=== PATIENT | female | born 1945 | race Caucasian/White ===

== ENCOUNTER 2019-02-20 05:11 | Inpatient (IN) | payer MEDICARE, OTHER, SELFPAY ==
[2019-02-20] VITALS (20 sets, daily range): BP systolic 100–113; BP diastolic 48–71; PULSE 65–97; RESP 20–24; TEMP 35.9–37.2; O2SAT 89–94
--- NOTE | ~2019-02-20 | XR_ITS ---
EXAMINATION: XR chest 1V portable EXAM DATE: 02/20/2019 05:51 INDICATION: History of COPD, CHF. TECHNIQUE: Portable AP frontal chest x-ray was obtained. Comparison is made to prior examination from 01/30/2019. FINDINGS: Rather extensive diffuse abnormal reticulation, most likely pulmonary edema assuming patien t does not have pneumonia clinically. There is cardiomegaly and there are small pleural effusions. Pr obable cardiac valve replacement. There is no pneumothorax suspected. There are bony degenerative sandy nges. There is aortic arterial sclerosis. IMPRESSION: 1. Extensive indistinct reticulation probably edema. Pneumonia not excludable. 2. Small pleural effusions, cardiomegaly. Reviewed, dictated and finalized at location A. ET DANCER IMPRESSION: 1. Extensive indistinct reticulation probably edema. Pneumonia not excludable . 2. Small pleural effusions, cardiomegaly.
--- NOTE | 2019-02-20 05:24 | ED.SOB ---
HPI - SOB/Dyspnea General Source: patient Mode of arrival: EMS Limitations: no limitations History of Present Illness HPI Narrative: 73-year-old woman brought in today by EMS for shortness of breath. Patient states that her shortness of breath started about 3:00 a.m. this morning. She denies any chest pain, nausea, sweating. She has recently been treated for bronchitis with antibiotics. She uses BiPAP at night and has 2 L by nasal cannula during the daytime. MD elicited complaint: shortness of breath and cough Pertinent past history: COPD, congestive heart failure and diabetes Context: recent illness Timing: constant Severity: moderate Exacerbating factors: lying flat Relieving factors: nothing Known history of: COPD, congestive heart failure and diabetes Associated symptoms: cough Treatment prior to arrival: oxygen and bronchodilator Related Data Home oxygen amount: 2 liters Home Medications Medication Instructions Recorded Confirmed amlodipine [Norvasc] See Rx Instructions .ROUTE .COMPLEX 02/20/19 apixaban [Eliquis] See Rx Instructions .ROUTE .COMPLEX 02/20/19 02/20/19 aspirin [Aspirin Childrens] See Rx Instructions .ROUTE .COMPLEX 02/20/19 02/20/19 atenolol [Tenormin] See Rx Instructions .ROUTE .COMPLEX 02/20/19 02/20/19 atorvastatin [Lipitor] See Rx Instructions .ROUTE .COMPLEX 02/20/19 02/20/19 brimonidine-timolol [Combigan] See Rx Instructions .ROUTE .COMPLEX 02/20/19 02/20/19 docusate sodium [Colace] 100 mg PO BID 02/20/19 02/20/19 ferrous sulfate 325 mg PO DAILY 02/20/19 02/20/19 furosemide [Lasix] See Rx Instructions .ROUTE .COMPLEX 02/20/19 02/20/19 gabapentin [Neurontin] See Rx Instructions .ROUTE .COMPLEX 02/20/19 02/20/19 ipratropium-albuterol 3 ml INHALATION Q6H PRN 02/20/19 02/20/19 levothyroxine [Synthroid] See Rx Instructions .ROUTE .COMPLEX 02/20/19 02/20/19 metformin 1,000 mg PO BID 02/20/19 02/20/19 Allergies Allergy/AdvReac Type Severity Reaction Status Date / Time morphine Allergy Intermediate Swelling Verified 02/20/19 10:05 sea food Allergy Intermediate Hives Uncoded 02/20/19 10:05 Review of Systems Constitutional: Constitutional: Denies chills, Denies fever(s) and Reports weakness Eyes: Eyes: Denies change in vision and Denies photophobia ENT: Denies dysphagia, Denies nasal congestion and Denies sore throat Cardiovascular: Cardiovascular: Denies chest pain, Denies rapid heart rate and Denies radiating jaw, neck or arm pain Respiratory: Respiratory: Reports as per HPI, Reports chest congestion, Reports cough, Reports dyspnea and Reports wheezing Gastrointestinal: Gastrointestinal: Denies abdominal pain, Denies diarrhea, Denies nausea and Denies vomiting Genitourinary: Genitourinary: Denies hematuria, Denies frequent urination and Denies dysuria Musculoskeletal: Musculoskeletal: Denies back pain, Denies myalgias and Denies joint swelling Integumentary/Breasts: Skin/Breast: Denies pruritus, Denies erythema and Denies rash Neurologic: Denies vertigo, Denies dizziness, Denies syncope, Denies headache(s) and Denies focal weakness Psychiatric: Psychiatric: Denies anxiety and Denies depression Endocrine: Endocrine: Denies polydipsia and Denies polyuria Hematologic/Lymphatic: Hematologic/Lymphatic: Denies easy bleeding and Reports easy bruising (on Eliquis) Allergic/Immunologic: Allergic/Immunologic: Denies lip swelling and Denies wheezing PMFSH Past Medical History Medical History Aortic valve stenosis (Acute) Atrial fibrillation (Acute) Cardiac arrest (Acute) Chronic back pain (Acute) Congestive heart failure (Acute) COPD (chronic obstructive pulmonary disease) (Acute) CVA (cerebral vascular accident) (Acute) Depression (Acute) Hypertension (Acute) Myocardial infarction (Acute) Obesity (Acute) Obstructive sleep apnea (Acute) Pulmonary hypertension (Acute) Type 2 diabetes mellitus (Acute) Surgical History Surgical History (Revie
--- NOTE | 2019-02-20 05:31 | ECG_ITS ---
Measurements Intervals Johnston Rate: 95 P: CO: 0 QRS: -53 QRSD: 101 T: 90 QT: 332 QTc: 417 Interpretive Statements ATRIAL FIBRILLATION LEFT AXIS DEVIATION LOW QRS VOLTAGE- DIFFUSE LEADS POOR R WAVE PROGRESSION, ANTERIOR LEADS BASELINE ARTIFACT- I, II, III, AVR, AVL, V1-V6 ATYPICAL ECG Electronically Signed On 02-20-2019 8:00:52 DIGITAL ADVISOR by Luis Alberto López D.O.
[2019-02-20] MEDS: IPRATROPIUM 0.5 MG/ALBUTEROL SULFATE 2.5 MG AMPUL.NEB 3 ML INHALATION ×4 (05:58→23:34)
[2019-02-20] MEDS: SODIUM CHLORIDE 0.9% 3 ML NEB FOR INHALATION (05:59)
[2019-02-20] MEDS: FUROSEMIDE INJ 40 MG/4 ML VIAL 60 MG IV PUSH (05:59)
[2019-02-20 06:16] LABS: Basophils Absolute Auto 0.03 K/mm3 (0.00-0.10); Basophils Percent Auto 0.2 % (0.0-1.0); Eosinophils Absolute Auto 0.19 K/mm3 (0.02-0.50); Eosinophils Percent Auto 1.5 % (1.0-6.0); Hematocrit 30.3 % (35.0-42.0); Hemoglobin 9.1 g/dL (11.7-13.8); Immature Granulocyte Absolute 0.08 K/mm3 (0.00-0.00); Immature Granulocyte Percent A 0.6 % (0.0-0.0); Lymphocytes Absolute Auto 0.55 K/mm3 (1.10-4.50); Lymphocytes Percent Auto 4.4 % (18.0-42.0); Mean Corpuscular Hemoglobin 24.3 pg (27.0-31.0); Mean Corpuscular Volume 80.8 fL (78.0-102.0); Monocytes Absolute Auto 0.47 K/mm3 (0.10-0.90); Monocytes Percent Auto 3.8 % (2.0-11.0); Neutrophils Absolute Auto 11.1 K/mm3 (1.7-7.2); Neutrophils Percent Auto 89.5 % (50.0-70.0); Platelet Count Result 190 K/mm3 (150-420); Red Blood Count 3.75 M/mm3 (4.20-5.40); White Blood Count 12.4 K/mm3 (4.8-10.8)
[2019-02-20 06:24] LABS: Add Urine Microscopic? YES; Appearance Urine Cloudy (Clear); Base Excess ABG 7.5 mmol/L (0-2); Bilirubin Urine Negative (Negative); Blood Urine 3+ (Negative); Color Urine Yellow (Yellow); Glucose Urine UA Negative (Negative); HCO3 ABG 32.9 mmol/L (23-29); Ketones Urine Negative (Negative); Leukocyte Esterase Ur 3+ LEU/UL (Negative); Nitrate Urine Positive (Negative); Oxygen Content ABG 13.4 %vol (16.0-22.0); Oxygen Saturation ABG 91.5 % (95-97); Oxyhemoglobin 90.4 % (94-100); PCO2 ABG 50.8 mmHg (35-45); PO2 ABG 61.5 mmHg (75-85); Protein Urine 2+ (Negative); Total Hemoglobin 10.5 g/dL; pH ABG 7.43 (7.35-7.45); pH Urine 8.5 (5.0-8.0)
[2019-02-20 06:25] LABS: Device NASAL CANNULA; Modified Allen's Test Unable to perform; Site Drawn LEFT RADIAL; Squamous Epithelial Cell Urine Rare /hpf (Few); WBC Urine 21-30 /hpf (0-3)
[2019-02-20 06:26] LABS: Bacteria Urine 4+ /hpf; Calcium Oxalate Crystals Urine Present /hpf
[2019-02-20 06:36] LABS: BNP 371 pg/mL (0-100); INR 1.1; Prothrombin Time 12.1 Seconds (9.64-11.0)
[2019-02-20 06:38] LABS: Influenza Control Valid (Valid)
[2019-02-20 06:46] LABS: Lactic Acid 1.3 mmol/L (0.4-2.0)
[2019-02-20 06:48] LABS: Alanine Aminotransferase 11 U/L (14-59); Albumin Level 2.8 g/dL (3.4-5.0); Alkaline Phosphatase 115 U/L (46-116); Anion Gap 8.1 mmol/L (7-16); Aspartate Amino Transferase 12 U/L (15-37); Bilirubin,Total 0.6 mg/dL (0.00-1.00); Blood Urea Nitrogen 13 mg/dL (7-18); Calcium 8.8 mg/dL (8.5-10.1); Carbon Dioxide 36 mmol/L (21-32); Chloride 103 mmol/L (98-108); Estimated CRCL calculation 72 ml/min; Estimated Glomerular Filt Rate > 60; Glucose 149 mg/dL (70-99); Osmolality Calculated 301 mOsm/kg (285-295); Potassium 3.1 mmol/L (3.5-5.1); Sodium 144 mmol/L (136-145); Total Protein 6.6 g/dL (6.4-8.2)
[2019-02-20 06:49] LABS: Magnesium 1.8 mg/dL (1.8-2.4); Troponin I < 0.02 ng/mL (0.00-0.056)
[2019-02-20] MEDS: methylPREDNISolone SOD SUCC 125 MG VIAL 80 MG IV PUSH (07:15)
[2019-02-20 08:23] LABS: Glucose Point of Care 157 (65-105)
[2019-02-20 09:25] LABS: Troponin I 0.02 ng/mL (0.00-0.056)
[2019-02-20] MEDS: KCL 20 MEQ/SW 100 ML 100 ML 50 MEQ IVPB (09:29)
[2019-02-20] MEDS: APIXABAN 2.5 MG TABLET 5 MG BY MOUTH ×2 (09:29→16:35)
[2019-02-20] MEDS: metFORMIN HCL 500 MG TABLET PO ×2 (09:29→16:34)
[2019-02-20] MEDS: LEVOTHYROXINE SODIUM 100 MCG TABLET 200 MCG BY MOUTH (09:30)
[2019-02-20] MEDS: AMLODIPINE BESYLATE 5 MG TABLET 10 MG BY MOUTH (09:30)
[2019-02-20] MEDS: ASPIRIN 81 MG CHEWABLE TABLET BY MOUTH (09:30)
[2019-02-20] MEDS: ESCITALOPRAM OXALATE 10 MG TABLET PO (09:30)
[2019-02-20] MEDS: GABAPENTIN 300 MG CAPSULE BY MOUTH ×3 (09:30→16:35)
[2019-02-20] MEDS: DOCUSATE SODIUM 100 MG CAPSULE PO ×2 (09:31→16:35)
[2019-02-20] MEDS: FERROUS SULFATE 324 MG TABLET PO (09:31)
[2019-02-20] MEDS: ATENOLOL 25 MG TABLET PO (09:32)
[2019-02-20] MEDS: ALBUTEROL SULFATE NEB 2.5 MG/3 ML INH INHALATION ×2 (09:34→14:08)
[2019-02-20 10:07] LABS: Phosphorus 4.8 mg/dL (2.6-4.7)
--- NOTE | 2019-02-20 12:02 | PM.IMHP ---
H&P: HPI History of Present Illness Chief complaint: respitory distress <Noris Goldberg NP - Last Filed: 02/20/19 16:21> Narrative: Angela Ewing is a 73 year old female admitted thru the ED earlier this morning for shortness of breath that started around 3 am this morning. She does have a productive and congested cough. She was treated with antibiotics recently for bronchitis. Her influenza swab was negative, her ABG showed CO2 retention with elevated bicarb. She does wear 2 L O2 NC during the day at the [facility], as well as her BiPap for sleeping/napping due to [place]. She has a history of COPD, CHF, and DM. Her Iron panel showed low Iron levels, ordered daily 200mg IV Venofer for 3 days. THIS MORNING, she is resting comfortably with her BiPap mask on. She does have a a productive and congested cough this morning. No fevers, no SOB at this time, and no chest pain. She stated that she is feeling better but continues to require 4L O2 and Q3-6 hour nebulizer treatments to relieve her SOB. She is eating her most of her meals and needs asistance x 2 for repositioning to sit upright. Ordered Pt/OT evaluation. Plan: Ordered Oxygen to bleed into the BiPap machine so she is receiving O2 continuously. Daily Lasix dosing to improve pulmonary congestion and edema. Started on IV Rocephin for UTI and IV Levaquin for Pneumonia/UTI. Her blood and urine cultures remain pending. Ordered Incentive Spirometer, Mucinex scheduled, Tesselon PRN, and DuoNeb treatments. Awaiting her urine and blood cultures results for sensitivities. <Noris Goldberg, RAW CHEESE WORKER - Last Filed: 02/20/19 16:21> Review of Systems Review of Systems: All systems reviewed & are unremarkable except as noted in HPI and below <Noris Goldberg NP - Last Filed: 02/20/19 16:21> Constitutional: Constitutional: Reports as per HPI, Denies chills, Denies fever(s), Denies headache(s) and Reports weakness <Noris Goldberg NP - Last Filed: 02/20/19 16:21> Eyes: Eyes: Denies change in vision and Denies photophobia <Noris Goldberg NP - Last Filed: 02/20/19 16:21> ENT: Denies dysphagia, Denies vertigo, Denies dizziness, Denies headache(s), Denies lip swelling, Denies nasal congestion and Denies sore throat <Noris Goldberg RAW CHEESE WORKER - Last Filed: 02/20/19 16:21> Cardiovascular: Cardiovascular: Denies chest pain, Denies syncope, Denies rapid heart rate, Denies radiating jaw, neck or arm pain and Reports dyspnea <Noris Goldberg RAW CHEESE WORKER - Last Filed: 02/20/19 16:21> Respiratory: Respiratory: Reports as per HPI, Reports chest congestion, Reports cough, Reports dyspnea and Denies wheezing <Noris Goldberg RAW CHEESE WORKER - Last Filed: 02/20/19 16:21> Gastrointestinal: Gastrointestinal: Denies abdominal pain, Denies dysphagia, Denies diarrhea, Denies nausea and Denies vomiting <Noris Goldberg RAW CHEESE WORKER - Last Filed: 02/20/19 16:21> Genitourinary: Genitourinary: Denies hematuria, Denies frequent urination and Denies dysuria <Noris Goldberg RAW CHEESE WORKER - Last Filed: 02/20/19 16:21> Musculoskeletal: Musculoskeletal: Denies back pain, Denies myalgias and Denies joint swelling <Noris Goldberg RAW CHEESE WORKER - Last Filed: 02/20/19 16:21> Integumentary/Breasts: Skin/Breast: Denies pruritus, Denies erythema and Denies rash <Noris Goldberg RAW CHEESE WORKER - Last Filed: 02/20/19 16:21> Neurologic: Denies vertigo, Denies dizziness, Denies syncope, Denies headache(s), Denies focal weakness and Reports weakness <Noris Goldberg RAW CHEESE WORKER - Last Filed: 02/20/19 16:21> Psychiatric: Psychiatric: Denies anxiety and Denies depression <Norsi Goldberg RAW CHEESE WORKER - Last Filed: 02/20/19 16:21> Endocrine: Endocrine: Denies polydipsia and Denies polyuria <Noris Goldberg RAW CHEESE WORKER - Last Filed: 02/20/19 16:21> Hematologic/Lymphatic: Hematologic/Lymphatic: Denies easy bleeding and Reports easy bruising (on Eliquis) <Noris Goldberg RAW CHEESE WORKER - Last Filed: 02/20/19 16:21> Allergic/Immunologic: Allergic/Immunologic: Denies lip swelling and Denies wheezing <Noris Goldberg, RAW CHEESE WORKER -
[2019-02-20 12:06] LABS: Glucose Point of Care 218 (65-105)
--- NOTE | 2019-02-20 14:55 | P.PNCROSS_ITS ---
Event Note Event Note: Pt. using bipap, feeling comfortable. Bibasilar rales on exam. I discussed with and reviewed documents of MANAGER ACQUISITION and agree with medical decision and plan.
--- NOTE | 2019-02-20 14:55 | PM.EVENT ---
Event Note Event Note: Pt. using bipap, feeling comfortable. Bibasilar rales on exam. I discussed with and reviewed documents of ELECTRONIC PREPRESS OPERATOR and agree with medical decision and plan.
[2019-02-20 16:39] LABS: Glucose Point of Care 204 (65-105)
[2019-02-20] MEDS: FUROSEMIDE INJ 40 MG/4 ML VIAL IV PUSH (17:49)
--- NOTE | 2019-02-20 18:09 | PC.NURSE ---
Galeano bag changed due to leakage
[2019-02-20] MEDS: ACETAMINOPHEN 325 MG TABLET 650 MG PO (19:49)
[2019-02-20] MEDS: ATORVASTATIN 10 MG TABLET 40 MG BY MOUTH (20:34)
[2019-02-20 20:47] LABS: Glucose Point of Care 160 (65-105)
--- NOTE | 2019-02-20 21:30 | PC.NURSE ---
pt sitting up in bed watching tv, talking on the phone, denies any needs at this time.
--- NOTE | 2019-02-20 23:45 | PC.NURSE ---
pt assisted with home bipap machine application, denies any other needs at this time
[2019-02-21] VITALS (15 sets, daily range): BP systolic 110–131; BP diastolic 48–70; PULSE 65–86; RESP 18–20; TEMP 36.1–36.6; O2SAT 90–95
--- NOTE | 2019-02-21 00:41 | PC.NURSE ---
pt sleeping, no distress noted, respirations even and regular
[2019-02-21 05:21] LABS: Hematocrit 26.5 % (35.0-42.0); Hemoglobin 8.1 g/dL (11.7-13.8); Mean Corpuscular HGB Conc 30.6 g/dL (32.0-36.0); Mean Corpuscular Hemoglobin 24.6 pg (27.0-31.0); Mean Corpuscular Volume 80.5 fL (78.0-102.0); Mean Platelet Volume 9.8 fl (9.2-11.8); Platelet Count Result 164 K/mm3 (150-420); Red Blood Count 3.29 M/mm3 (4.20-5.40); Red Cell Distribution Width 15.8 % (11.6-14.4)
[2019-02-21 05:38] LABS: Anion Gap 9.1 mmol/L (7-16); Blood Urea Nitrogen 16 mg/dL (7-18); Calcium 8.3 mg/dL (8.5-10.1); Carbon Dioxide 35 mmol/L (21-32); Chloride 103 mmol/L (98-108); Estimated CRCL calculation 85 ml/min; Estimated Glomerular Filt Rate > 60; Glucose 121 mg/dL (70-99); Osmolality Calculated 300 mOsm/kg (285-295); Potassium 3.1 mmol/L (3.5-5.1); Sodium 144 mmol/L (136-145)
[2019-02-21] MEDS: IPRATROPIUM 0.5 MG/ALBUTEROL SULFATE 2.5 MG AMPUL.NEB 3 ML INHALATION ×4 (05:39→23:33)
--- NOTE | 2019-02-21 05:39 | PC.NURSE ---
Respiratory at bedside
[2019-02-21 05:41] LABS: BNP 577 pg/mL (0-100)
--- NOTE | 2019-02-21 06:29 | PC.NURSE ---
pt sitting up in bed watching tv, denies any needs at this time.
[2019-02-21 07:22] LABS: Glucose Point of Care 117 (65-105)
[2019-02-21] MEDS: FUROSEMIDE INJ 40 MG/4 ML VIAL IV PUSH ×2 (08:41→17:54)
[2019-02-21] MEDS: DOCUSATE SODIUM 100 MG CAPSULE PO ×2 (08:42→17:53)
[2019-02-21] MEDS: AMLODIPINE BESYLATE 5 MG TABLET 10 MG BY MOUTH (08:42)
[2019-02-21] MEDS: ATENOLOL 25 MG TABLET PO (08:42)
[2019-02-21] MEDS: ESCITALOPRAM OXALATE 10 MG TABLET PO (08:42)
[2019-02-21] MEDS: GABAPENTIN 300 MG CAPSULE BY MOUTH ×3 (08:43→17:53)
[2019-02-21] MEDS: LEVOTHYROXINE SODIUM 100 MCG TABLET 200 MCG BY MOUTH (08:43)
[2019-02-21] MEDS: ASPIRIN 81 MG CHEWABLE TABLET BY MOUTH (08:44)
[2019-02-21] MEDS: APIXABAN 2.5 MG TABLET 5 MG BY MOUTH ×2 (08:44→17:53)
[2019-02-21] MEDS: IRON SUCROSE COMPLEX 200 MG in SODIUM CHLORIDE 0.9% IV 50 ML 120 MG IVPB (08:45)
[2019-02-21] MEDS: metFORMIN HCL 500 MG TABLET PO ×2 (08:46→17:53)
--- NOTE | 2019-02-21 10:30 | PC.NURSE ---
Pt. resting in bed on left side. Bipap applied per RT. Pt. denies any needs. Call light at side.
[2019-02-21] MEDS: POTASSIUM CHLORIDE 20 MEQ TABLET 40 MEQ PO (10:33)
[2019-02-21] MEDS: SACCHAROMYCES BOULARDII 250 MG CAPSULE PO ×3 (10:33→17:54)
--- NOTE | 2019-02-21 10:52 | PM.IMPN ---
Progress Note: A&P Assessment and Plan (1) senior care-acquired pneumonia: Code(s): J18.9 - Pneumonia, unspecified organism Status: Acute Assessment and Plan: Assessment with crackles, coarse sounds, wheezing to auscultation. Productive and congested cough. Cough increasing in productiveness, now getting out moderate amounts of green and yellow thick sputum with her coughs today. May be related to her last few weeks of respiratory distress, intubation, hospital transfers, pulmonary HTN, aortic valve replacement or her [facility] stay. CXR showed: Rather extensive diffuse abnormal reticulation, pulmonary edema and/or pneumonia. There is cardiomegaly and there are small pleural effusions. Probable cardiac valve replacement. There is no pneumothorax suspected. There are bony degenerative changes. There is aortic arterial sclerosis. Influenza swab was negative. No fevers noted. ABG showed CO2 retention with elevated bicarb; using BiPap PRN and improving. requires 4L O2 continously (more than home 2L O2 need) requiring Q3-6 hour nebulizer treatments to relieve her SOB. IMPROVING with Incentive Spirometer, Mucinex scheduled, Tesselon PRN, and DuoNeb treatments. Started on IV Rocephin for UTI and IV Levaquin for Pneumonia/UTI. Her blood,urine, and sputum cultures remain pending. Awaiting her urine and blood cultures results for sensitivities. (2) Obstructive sleep apnea: Code(s): G47.33 - Obstructive sleep apnea (adult) (pediatric) Status: Acute Assessment and Plan: Wears her BiPap at night and for napping, as well as for shortness of breath. ABG showed CO2 retention with elevated bicarb; using BiPap PRN and improving. requires 4L O2 continously (more than home 2L O2 need) Ordered Oxygen to bleed into the BiPap machine so she is receiving O2 continuously. (3) Atrial fibrillation: Code(s): I48.91 - Unspecified atrial fibrillation Status: Acute Assessment and Plan: Continuous Telemetry monitoring. Chronic and Stable. or may be related to her aortic valve replacement. on daily Eliquis. HR controlled, Rate 70-80s. EKG completed and reviewed. (4) UTI (urinary tract infection): Qualifiers: Hematuria presence: without hematuria Urinary tract infection type: acute cystitis Qualified Code(s): N30.00 - Acute cystitis without hematuria Code(s): N39.0 - Urinary tract infection, site not specified Status: Acute Assessment and Plan: Urine analysis with elevated WBC and + nitrates. Galeano catheter inserted in ED upon this hospital admission. Patent catheter. Urine clear and yellow in bag. Strict I/Os. Continue on IV Rocephin for UTI (IV Levaquin for Pneumonia/UTI). Her blood and urine cultures remain pending. Awaiting her urine and blood cultures results for sensitivities. (5) Obesity: Code(s): E66.9 - Obesity, unspecified Status: Acute Assessment and Plan: needs assistance x2 with turning and repositioning. PT/OT evaluations ordered. encouraged patient to increase her activity herself while in bed. diabetic/heart healthy diet To improve her Respiratory tolerance of Activity - needs to improve and increase muscle tone/function and Stamina. (6) Congestive heart failure: Qualifiers: Heart failure chronicity: acute on chronic Heart failure type: unspecified Qualified Code(s): I50.9 - Heart failure, unspecified Code(s): I50.9 - Heart failure, unspecified Status: Acute Assessment and Plan: productive and congested cough; CHF exacerbation vs. COPD exacerbation vs. Pneumonia (or all 3) IMPROVING with Diuresis. BiPap mask PRN Requiring more O2 to relieve her SOB. Ordered Oxygen to bleed into the BiPap machine so she is receiving O2 continuously - need to be sure this practice continues at the [facility]. Daily 40mg IV Lasix BID dosing to improve pulmonary congestion and edema. Creatinine levels/Renal fun
[2019-02-21] MEDS: methylPREDNISolone SOD SUCC 40 MG VIAL IV PUSH ×2 (11:06→17:52)
[2019-02-21 11:12] LABS: Glucose Point of Care 119 (65-105)
--- NOTE | 2019-02-21 11:45 | PC.NURSE ---
RT in room to give nebulizer treatment. Pt. resting in bed on left side. Denies any needs at present. Call light and belongings at side.
--- NOTE | 2019-02-21 16:35 | PC.NURSE ---
Blood sugar check 154. Pt. to not receive any insulin. Pt. daughter in room to visit.
[2019-02-21] MEDS: ATORVASTATIN 10 MG TABLET 40 MG BY MOUTH (20:35)
--- NOTE | 2019-02-21 21:39 | PC.NURSE ---
pt resting in bed watching tv, denies any needs at this time, call light and belongings within reach
--- NOTE | 2019-02-21 22:30 | PC.NURSE ---
pt resting in bed watching tv, pt denies any needs at this time
[2019-02-21] MEDS: ACETAMINOPHEN 325 MG TABLET 650 MG PO (23:45)
[2019-02-22] VITALS (11 sets, daily range): BP systolic 122–143; BP diastolic 63–75; PULSE 66–84; RESP 16–20; TEMP 36.1–36.2; O2SAT 93–95
--- NOTE | 2019-02-22 00:46 | PC.NURSE ---
pt sleeping, respirations even and regular, no evidence of distress noted, call light and belongings within reach
[2019-02-22 01:51] LABS: Glucose Point of Care 179 (65-105)
[2019-02-22 05:18] LABS: Hematocrit 29.9 % (35.0-42.0); Hemoglobin 8.9 g/dL (11.7-13.8); Mean Corpuscular HGB Conc 29.8 g/dL (32.0-36.0); Mean Corpuscular Hemoglobin 24.2 pg (27.0-31.0); Mean Corpuscular Volume 81.3 fL (78.0-102.0); Mean Platelet Volume 9.9 fl (9.2-11.8); Platelet Count Result 197 K/mm3 (150-420); Red Blood Count 3.68 M/mm3 (4.20-5.40); Red Cell Distribution Width 15.8 % (11.6-14.4)
[2019-02-22] MEDS: FUROSEMIDE INJ 40 MG/4 ML VIAL IV PUSH ×2 (05:26→18:13)
[2019-02-22] MEDS: IPRATROPIUM 0.5 MG/ALBUTEROL SULFATE 2.5 MG AMPUL.NEB 3 ML INHALATION ×4 (05:32→23:58)
[2019-02-22 05:33] LABS: BNP 751 pg/mL (0-100)
[2019-02-22 05:36] LABS: Anion Gap 9.9 mmol/L (7-16); Blood Urea Nitrogen 18 mg/dL (7-18); Calcium 8.5 mg/dL (8.5-10.1); Carbon Dioxide 34 mmol/L (21-32); Chloride 103 mmol/L (98-108); Estimated CRCL calculation 74 ml/min; Estimated Glomerular Filt Rate > 60; Glucose 149 mg/dL (70-99); Osmolality Calculated 300 mOsm/kg (285-295); Potassium 3.9 mmol/L (3.5-5.1); Sodium 143 mmol/L (136-145)
--- NOTE | 2019-02-22 06:20 | PC.NURSE ---
pt requested bi-pap to be placed on, she is sleepy and would like to rest
[2019-02-22 07:41] LABS: Glucose Point of Care 124 (65-105)
[2019-02-22] MEDS: ESCITALOPRAM OXALATE 10 MG TABLET PO (08:20)
[2019-02-22] MEDS: POTASSIUM CHLORIDE 20 MEQ TABLET 40 MEQ PO (08:20)
[2019-02-22] MEDS: metFORMIN HCL 500 MG TABLET PO ×2 (08:23→18:14)
[2019-02-22] MEDS: GABAPENTIN 300 MG CAPSULE BY MOUTH ×3 (08:23→18:15)
[2019-02-22] MEDS: LEVOTHYROXINE SODIUM 100 MCG TABLET 200 MCG BY MOUTH (08:23)
[2019-02-22] MEDS: FERROUS SULFATE 324 MG TABLET PO (08:24)
[2019-02-22] MEDS: SACCHAROMYCES BOULARDII 250 MG CAPSULE PO ×2 (08:25→18:22)
[2019-02-22] MEDS: DOCUSATE SODIUM 100 MG CAPSULE PO ×2 (08:25→18:15)
[2019-02-22] MEDS: ATENOLOL 25 MG TABLET PO (08:25)
[2019-02-22] MEDS: AMLODIPINE BESYLATE 5 MG TABLET 10 MG BY MOUTH (08:27)
[2019-02-22] MEDS: APIXABAN 2.5 MG TABLET 5 MG BY MOUTH ×2 (08:28→18:14)
[2019-02-22] MEDS: ASPIRIN 81 MG CHEWABLE TABLET BY MOUTH (08:28)
[2019-02-22] MEDS: methylPREDNISolone SOD SUCC 40 MG VIAL IV PUSH ×2 (08:32→18:13)
--- NOTE | 2019-02-22 09:12 | PC.NURSE ---
P.T. HERE FOR EVALUATION. JAILENE Escobedo IN TO SEE PT.
[2019-02-22] MEDS: IRON SUCROSE COMPLEX 200 MG in SODIUM CHLORIDE 0.9% IV 100 ML 146 MG IVPB (09:33)
--- NOTE | 2019-02-22 09:54 | PM.IMPN ---
Progress Note: A&P Assessment and Plan (1) half-way-acquired pneumonia: Code(s): J18.9 - Pneumonia, unspecified organism Status: Acute Assessment and Plan: Wheezing improved. Cough now rare but remains productive. May be related to her last few weeks of respiratory distress, intubation, hospital transfers, pulmonary HTN, hx.aortic valve replacement or her Assisted stay. CXR showed: Rather extensive diffuse abnormal reticulation, pulmonary edema and/or pneumonia. There is cardiomegaly and there are small pleural effusions. Probable cardiac valve replacement. There is no pneumothorax suspected. There are bony degenerative changes. There is aortic arterial sclerosis. Influenza swab was negative. No fevers noted. ABG showed CO2 retention with elevated bicarb; using BiPap PRN and improving. requires 3-4L O2 continuously (more than usual home 2L O2 need) requiring Q4-6 hour nebulizer treatments to relieve her SOB. IMPROVING with Incentive Spirometer, Mucinex scheduled, Tesselon PRN, and DuoNeb treatments. Started on IV Rocephin for UTI and IV Levaquin for Pneumonia/UTI. blood cultures x2 showed no growth, urine cultures showed Proteus mirabilis (awaiting sensitivities), and her Sputum culture showed gram + bacilli, gram + Cocci (awaiting sensitivites). (2) Obstructive sleep apnea: Code(s): G47.33 - Obstructive sleep apnea (adult) (pediatric) Status: Acute Assessment and Plan: Wears her BiPap at night and for napping, as well as for shortness of breath. ABG showed CO2 retention with elevated bicarb; using BiPap PRN and improving. requires 4L O2 continously (more than home 2L O2 need) Ordered Oxygen to bleed into the BiPap machine so she is receiving O2 continuously. (3) Atrial fibrillation: Code(s): I48.91 - Unspecified atrial fibrillation Status: Acute Assessment and Plan: Continuous Telemetry monitoring. Chronic and Stable. or may be related to her aortic valve replacement. on daily Eliquis. HR controlled, Rate 70-80s. EKG completed and reviewed. (4) UTI (urinary tract infection): Qualifiers: Hematuria presence: without hematuria Urinary tract infection type: acute cystitis Qualified Code(s): N30.00 - Acute cystitis without hematuria Code(s): N39.0 - Urinary tract infection, site not specified Status: Acute Assessment and Plan: Urine analysis with elevated WBC and + nitrates. Galeano catheter inserted in ED upon this hospital admission. Patent catheter. Urine clear and yellow in bag. Strict I/Os. Continue on IV Rocephin for UTI (IV Levaquin for Pneumonia/UTI). Her blood and urine cultures remain pending. Her blood cultures x2 showed no growth, urine cultures showed Proteus mirabilis (awaiting sensitivities), and her Sputum culture showed gram + bacilli, gram + Cocci (awaiting sensitivites). (5) Obesity: Code(s): E66.9 - Obesity, unspecified Status: Acute Assessment and Plan: needs assistance x2 with turning and repositioning. PT/OT evaluations ordered. encouraged patient to increase her activity herself while in bed. diabetic/heart healthy diet To improve her Respiratory tolerance of Activity - needs to improve and increase muscle tone/function and Stamina. (6) Congestive heart failure: Qualifiers: Heart failure chronicity: acute on chronic Heart failure type: unspecified Qualified Code(s): I50.9 - Heart failure, unspecified Code(s): I50.9 - Heart failure, unspecified Status: Acute Assessment and Plan: productive and congested cough; CHF exacerbation vs. COPD exacerbation vs. Pneumonia (or all 3) IMPROVING with Diuresis. BiPap mask PRN Requiring more O2 to relieve her SOB. Ordered Oxygen to bleed into the BiPap machine so she is receiving O2 continuously - need to be sure this practice continues at the Assisted. Daily 40mg IV Lasix BID dosing to improve pulmonary congestion and
[2019-02-22 10:10] LABS: Folic Acid 6.9 ng/mL (8.6->20); Thyroid Stimulating Hormone 0.22 uIU/mL (0.36-3.74); Vitamin B12 250 pg/mL (193-986)
[2019-02-22 11:39] LABS: Glucose Point of Care 114 (65-105)
--- NOTE | 2019-02-22 14:59 | PC.NURSE ---
WATCHING TV. WEARING C-PAP
--- NOTE | 2019-02-22 16:50 | PC.NURSE ---
Physical Therapy done working with pt. Pt. sitting up at side of bed resting. Blood sugar check 124. Pt. denies any needs. Call light and belongings at side.
[2019-02-22 16:51] LABS: Glucose Point of Care 124 (65-105)
[2019-02-22] MEDS: ATORVASTATIN 10 MG TABLET 40 MG BY MOUTH (20:43)
[2019-02-22 21:37] LABS: Glucose Point of Care 163 (65-105)
--- NOTE | 2019-02-22 21:43 | PC.NURSE ---
Patient bedding was wet with urine. Catheter was still inserted but appeared to have been pulled lower. Catheter care given and catheter repositioned. 1100 mls of light yellow clear urine removed from collection bag. Bedding changed.
[2019-02-23] VITALS (8 sets, daily range): BP systolic 125–145; BP diastolic 62–79; PULSE 68–74; RESP 14–20; TEMP 35.8–36.4; O2SAT 96–98
[2019-02-23 05:24] LABS: Hematocrit 30.9 % (35.0-42.0); Hemoglobin 9.2 g/dL (11.7-13.8); Mean Corpuscular HGB Conc 29.8 g/dL (32.0-36.0); Mean Corpuscular Hemoglobin 24.2 pg (27.0-31.0); Mean Corpuscular Volume 81.3 fL (78.0-102.0); Platelet Count Result 216 K/mm3 (150-420); Red Cell Distribution Width 15.9 % (11.6-14.4); White Blood Count 11.5 K/mm3 (4.8-10.8)
[2019-02-23 05:27] LABS: Anion Gap 11.7 mmol/L (7-16); Blood Urea Nitrogen 20 mg/dL (7-18); Calcium 8.8 mg/dL (8.5-10.1); Carbon Dioxide 34 mmol/L (21-32); Chloride 103 mmol/L (98-108); Estimated CRCL calculation 74 ml/min; Estimated Glomerular Filt Rate > 60; Glucose 150 mg/dL (70-99); Osmolality Calculated 305 mOsm/kg (285-295); Potassium 3.7 mmol/L (3.5-5.1); Sodium 145 mmol/L (136-145)
[2019-02-23] MEDS: IPRATROPIUM 0.5 MG/ALBUTEROL SULFATE 2.5 MG AMPUL.NEB 3 ML INHALATION ×2 (05:31→11:22)
[2019-02-23 05:36] LABS: BNP 452 pg/mL (0-100)
[2019-02-23] MEDS: FUROSEMIDE INJ 40 MG/4 ML VIAL IV PUSH (05:50)
[2019-02-23] MEDS: LEVOTHYROXINE SODIUM 100 MCG TABLET 200 MCG BY MOUTH (05:51)
[2019-02-23 07:35] LABS: Glucose Point of Care 113 (65-105)
[2019-02-23] MEDS: SACCHAROMYCES BOULARDII 250 MG CAPSULE PO ×2 (08:12→13:10)
[2019-02-23] MEDS: POTASSIUM CHLORIDE 20 MEQ TABLET 40 MEQ PO (08:14)
[2019-02-23] MEDS: DOCUSATE SODIUM 100 MG CAPSULE PO (08:14)
[2019-02-23] MEDS: AMLODIPINE BESYLATE 5 MG TABLET 10 MG BY MOUTH (08:15)
[2019-02-23] MEDS: metFORMIN HCL 500 MG TABLET PO (08:15)
[2019-02-23] MEDS: ESCITALOPRAM OXALATE 10 MG TABLET PO (08:15)
[2019-02-23] MEDS: GABAPENTIN 300 MG CAPSULE BY MOUTH ×2 (08:16→13:08)
[2019-02-23] MEDS: ATENOLOL 25 MG TABLET PO (08:16)
[2019-02-23] MEDS: APIXABAN 2.5 MG TABLET 5 MG BY MOUTH (08:16)
[2019-02-23] MEDS: methylPREDNISolone SOD SUCC 40 MG VIAL IV PUSH (08:17)
[2019-02-23] MEDS: ASPIRIN 81 MG CHEWABLE TABLET BY MOUTH (08:17)
[2019-02-23] MEDS: LIDOCAINE 5% PATCH 1 PATCH TRANSDERM (10:47)
[2019-02-23 11:41] LABS: Glucose Point of Care 125 (65-105)
[2019-02-23] MEDS: AMOXICILLIN/CLAVULANATE K 875-125 MG TAB 1 TABLET PO (13:09)
--- NOTE | 2019-02-23 13:14 | P.DS_ITS ---
DS: Diagnosis Admitting Diagnosis Admitting Diagnosis: Pneumonia, unspecified organism Discharge Diagnosis (1) snf-acquired pneumonia: Code(s): J18.9 - Pneumonia, unspecified organism Status: Acute Assessment and Plan: Wheezing improved. Cough now rare but remains productive. May be related to her last few weeks of respiratory distress, intubation, hospital transfers, pulmonary HTN, hx.aortic valve replacement or her [facility] stay. CXR showed: Rather extensive diffuse abnormal reticulation, pulmonary edema and/or pneumonia. There is cardiomegaly and there are small pleural effusions. Probable cardiac valve replacement. There is no pneumothorax suspected. There are bony degenerative changes. There is aortic arterial sclerosis. Influenza swab was negative. No fevers noted. ABG showed CO2 retention with elevated bicarb; using BiPap PRN and improving. requires 3-4L O2 continuously (more than usual home 2L O2 need) requiring Q4-6 hour nebulizer treatments to relieve her SOB. IMPROVING with Incentive Spirometer, Mucinex scheduled, Tesselon PRN, and DuoNeb treatments. Started on IV Rocephin for UTI and IV Levaquin for Pneumonia/UTI. blood cultures x2 showed no growth, urine cultures showed Proteus mirabilis (awaiting sensitivities), and her Sputum culture showed gram + bacilli, gram + Cocci (awaiting sensitivites). (2) Obstructive sleep apnea: Code(s): G47.33 - Obstructive sleep apnea (adult) (pediatric) Status: Acute Assessment and Plan: Wears her BiPap at night and for napping, as well as for shortness of breath. ABG showed CO2 retention with elevated bicarb; using BiPap PRN and improving. requires 4L O2 continously (more than home 2L O2 need) Ordered Oxygen to bleed into the BiPap machine so she is receiving O2 continuously. (3) Atrial fibrillation: Code(s): I48.91 - Unspecified atrial fibrillation Status: Acute Assessment and Plan: Continuous Telemetry monitoring. Chronic and Stable. or may be related to her aortic valve replacement. on daily Eliquis. HR controlled, Rate 70-80s. EKG completed and reviewed. (4) UTI (urinary tract infection): Qualifiers: Hematuria presence: without hematuria Urinary tract infection type: acute cystitis Qualified Code(s): N30.00 - Acute cystitis without hematuria Code(s): N39.0 - Urinary tract infection, site not specified Status: Acute Assessment and Plan: Urine analysis with elevated WBC and + nitrates. Galeano catheter inserted in ED upon this hospital admission. Patent catheter. Urine clear and yellow in bag. Strict I/Os. Continue on IV Rocephin for UTI (IV Levaquin for Pneumonia/UTI). Her blood and urine cultures remain pending. Her blood cultures x2 showed no growth, urine cultures showed Proteus mirabilis (awaiting sensitivities), and her Sputum culture showed gram + bacilli, gram + Cocci (awaiting sensitivites). (5) Obesity: Code(s): E66.9 - Obesity, unspecified Status: Acute Assessment and Plan: needs assistance x2 with turning and repositioning. PT/OT evaluations ordered. encouraged patient to increase her activity herself while in bed. diabetic/heart healthy diet To improve her Respiratory tolerance of Activity - needs to improve and increase muscle tone/function and Stamina. (6) Congestive heart failure: Qualifiers: Heart failure chronicity: acute on chronic Heart failure type: unspecified Qualified Code(s): I50.9 - Heart failure, unspecified Code(s): I50.9 - Heart failure, unspecified Status: Acute Assessment and Plan:
--- NOTE | 2019-02-23 14:09 | PC.NURSE ---
kiki ramos'ed. lg bm, report given to [facility]
--- NOTE | 2019-02-23 21:08 | WPDPN ---
Objective Data Vital Signs Vital Signs: Vital Signs - 24 hr 02/23/19 00:00 02/23/19 00:05 02/23/19 04:00 Temperature 35.8 C L 36.4 C Pulse Rate 68 74 73 Respiratory Rate 14 18 14 Blood Pressure 125/62 145/79 H Pulse Oximetry 98 96 02/23/19 05:32 02/23/19 05:44 02/23/19 07:55 Temperature 36.1 C L Pulse Rate 73 74 72 Respiratory Rate 20 20 18 Blood Pressure 128/79 Pulse Oximetry 96 02/23/19 11:14 02/23/19 12:00 Temperature 36.1 C L Pulse Rate 73 72 Respiratory Rate 16 18 Blood Pressure 130/72 Pulse Oximetry 96 Intake/Output Intake/Output: Intake & Output 02/20/19 02/21/19 02/22/19 02/23/19 23:59 23:59 23:59 23:59 Intake Total 1555 1864.39 1322.674 4127 Output Total 1075 3900 5975 2200 Balance 480 -2035.61 -4326.667 -600 Meds/Results Radiology Results: ITS Impressions Chest X-Ray 02/20/19 08:21 IMPRESSION: 1. Extensive indistinct reticulation probably edema. Pneumonia not excludable. 2. Small pleural effusions, cardiomegaly. Labs Labs: Laboratory Results - last 24 hr 02/22/19 02/23/19 02/23/19 21:36 05:12 05:12 WBC 11.5 H RBC 3.80 L Hgb 9.2 L Hct 30.9 L MCV 81.3 MCH 24.2 L MCHC 29.8 L RDW 15.9 H Plt Count 216 MPV 10.0 Sodium 145 Potassium 3.7 Chloride 103 Carbon Dioxide 34 H Anion Gap 11.7 BUN 20 H Creatinine 0.79 Estim Creat Clear Calc 74 Estimated GFR > 60 Glucose 150 H POC Capillary Glucose 163 Calculated Osmolality 305 H Calcium 8.8 B-Natriuretic Peptide 452 H 02/23/19 02/23/19 07:31 11:37 WBC RBC Hgb Hct MCV MCH MCHC RDW Plt Count MPV Sodium Potassium Chloride Carbon Dioxide Anion Gap BUN Creatinine Estim Creat Clear Calc Estimated GFR Glucose POC Capillary Glucose 113 125 Calculated Osmolality Calcium B-Natriuretic Peptide
[2019-02-25 06:25] LABS: Vitamin D 25 Hydroxy 13 ng/mL (30-100)
[2019-02-26 14:19] LABS: Vitamin B6 <2.0 ng/mL (2.1-21.7)
--- NOTE | 2019-03-01 07:22 | PM.EVENT ---
Event Note Event Note: I saw the patient with the nurse practitioner I agree with her assessment and plan
--- NOTE | 2019-03-01 10:38 | PC.NURSE ---
Discharge Call Back [phone] Spoke with patient RN Massiel at [email or web address]. No problems stated with Discharge instructions or report called.
--- NOTE | 2019-03-05 10:06 | PCOTNOTE ---
Patient is discharged from skilled OT services as she has been discharged from this facility and returned to [facility] facility. MS
== END 2019-02-23 14:20 | DRG 190 ==
LOC: CHSED 06:45 → CHS2ND 07:36
PROVIDERS: Nurse Practitioner; Admitting Provider Emergency Medicine; Emergency Provider Emergency Medicine; PCP Family Medicine; Visit Provider Emergency Medicine
DX: J44.1 Chronic obstructive pulmonary disease with (acute) exacerbation (principal); J18.9 Pneumonia, unspecified organism; I48.20 Chronic atrial fibrillation, unspecified; I11.0 Hypertensive heart disease with heart failure; J44.0 Chronic obstructive pulmonary disease with (acute) lower respiratory infection; I50.9 Heart failure, unspecified; I35.0 Nonrheumatic aortic (valve) stenosis; F32.9 Major depressive disorder, single episode, unspecified; G47.33 Obstructive sleep apnea (adult) (pediatric); E11.9 Type 2 diabetes mellitus without complications; Z86.73 Personal history of transient ischemic attack (TIA), and cerebral infarction without residual deficits; I27.20 Pulmonary hypertension, unspecified; E66.9 Obesity, unspecified; D64.9 Anemia, unspecified; N39.0 Urinary tract infection, site not specified; Z95.2 Presence of prosthetic heart valve; Z86.74 Personal history of sudden cardiac arrest; I25.2 Old myocardial infarction; I44.1 Atrioventricular block, second degree
CPT/HCPCS: 36415; 36600; 71045; 80048; 80053; 81001; 82306; 82607; 82746; 82805; 83605; 83735; 83880; 84100; 84207; 84443; 84484; 85025; 85027; 85610; 87040; 87070; 87077; 87086; 87088; 87186; 87205; 87804; 93005; 94640; 96374; 96375; 97110; 97162; 97165; 97530; 97535; 99284; 99285; A9270; J0696; J1756; J1815; J1940; J1956; J2920; J2930; J3480

== ENCOUNTER 2019-03-26 02:01 | Observation (INO) | payer MEDICARE, OTHER, SELFPAY ==
[2019-03-26] VITALS (18 sets, daily range): BP systolic 97–149; BP diastolic 51–106; PULSE 73–115; RESP 16–22; TEMP 35.2–37.2; O2SAT 95–98; BMI 45.8
--- NOTE | ~2019-03-26 | XR_ITS ---
EXAMINATION: XR chest 1V portable INDICATION: Chest pain and shortness of breath TECHNIQUE: Portable AP chest at 0 to 35 hours COMPARISON: 02/20/2019 FINDINGS: There is stable cardiomegaly. A mild diffuse interstitial pattern is present. There are sma ll pleural effusions. No pneumothorax is identified. Minimal airspace opacities are present in the le ft lung base. A prosthetic aortic valve is noted. IMPRESSION: 1. Cardiomegaly with mild pulmonary edema. 2. Minimal bibasilar airspace opacities, likely atelectasis. 3. Small pleural effusions. Reviewed, dictated and finalized at location A. AIN CUTTER HAND
--- NOTE | ~2019-03-26 | XR_ITS ---
EXAMINATION: XR chest 1V portable DATE: 03/29/2019 07:51 INDICATION: Congestive heart failure. TECHNIQUE: A single frontal view of the chest was obtained. COMPARISON: Chest single view 03/27/2019, CT abdomen and pelvis 01/01/2019 FINDINGS: There is a diffuse interstitial pattern in the lungs, consistent with mild pulmonary edema. No pleural effusion or pneumothorax. Cardiomegaly is noted. There is a prominent left paracardial fa t pad. There is enlargement of main pulmonary artery, consistent with pulmonary arterial hypertension . There are changes of aortic valve replacement. IMPRESSION: 1. Mild pulmonary edema. 2. Cardiomegaly. Reviewed, dictated and finalized at location B. MASTER
--- NOTE | ~2019-03-26 | XR_ITS ---
XR chest 1V portable DATE: 03/27/2019 09:39 INDICATION: Chest pain, shortness of breath. History of congestive heart failure. TECHNIQUE: Portable upright AP (apical lordotic) chest on 03/27/2019 at 0937 hours COMPARISON: 03/26/2019 portable AP chest FINDINGS: There is cardiomegaly. There is mild pulmonary vascular congestion and redistribution, mild prominence of minor fissure and pulmonary station, suggesting congestive changes, pulmonary intersti tial and subpleural edema. Small pleural effusions cannot be excluded. There is suggestion of bibasilar infiltrate and/or atelectasis. Aortic calcification. Diffuse osteopenia IMPRESSION: Mild congestive changes Mild bibasilar infiltrate or atelectasis Reviewed, dictated and finalized at location A. MANAGER
--- NOTE | 2019-03-26 02:12 | ECG_ITS ---
Measurements Intervals Bradley Rate: 103 P: DE: 0 QRS: -56 QRSD: 101 T: 80 QT: 359 QTc: 470 Interpretive Statements ATRIAL FIBRILLATION WITH RAPID VENTRICULAR RESPONSE LEFT ANTERIOR FASCICULAR BLOCK BORDERLINE ST-T WAVE ABNORMALITY- LATERAL LEADS BASELINE ARTIFACT- I, II, AVR, V1-V2 ABNORMAL ECG Electronically Signed On 03-26-2019 8:42:56 HEEL COVERER by Luis Alberto López D.O.
--- NOTE | 2019-03-26 02:18 | ED.CHESTPAIN ---
HPI - Chest Pain General Chief Complaint: Chest Pain Stated Complaint: SOB Time Seen by Provider: 03/26/19 02:05 Source: patient Mode of arrival: EMS Limitations: no limitations History of Present Illness HPI narrative: 69-year-old woman with a history of cardiac arrest, TAVR, COPD and atrial fibrillation but in today by EMS for shortness of breath, chest pain and cough present all day. She states that she has had no fever, chills, sputum production, syncope, dysuria or vomiting. She uses oxygen at home. MD complaint: chest pain Onset (ago): day(s) (1) Timing of current episode: constant Prior episodes: Yes Onset: during rest Pain location: substernal Pain radiation: none Severity: moderate Quality: heaviness Relieving factors: nothing Exacerbating factors: other ( cough) Associated symptoms: dyspnea and cough Treatment prior to arrival: none Risk Factors Coronary artery disease risk factors: diabetes, smoking history, hyperlipidemia and hypertension Thoracic aortic dissection risk factors: none Related Data On Oral Contraceptives: No Home Medications Medication Instructions Recorded Confirmed amlodipine 10 mg PO DAILY 03/26/19 03/26/19 apixaban [Eliquis] 5 mg PO BID 03/26/19 03/26/19 atenolol 50 mg PO DAILY 03/26/19 03/26/19 furosemide 40 mg PO HS 03/26/19 03/26/19 furosemide 80 mg PO DAILY 03/26/19 03/26/19 metformin 500 mg PO BID 03/26/19 03/26/19 Allergies Allergy/AdvReac Type Severity Reaction Status Date / Time morphine AdvReac Hallucinati Verified 03/26/19 02:27 ng Review of Systems Constitutional: Constitutional: Denies chills, Denies fever(s) and Reports weakness Eyes: Eyes: Denies change in vision and Denies photophobia ENT: Denies dysphagia, Denies nasal congestion and Denies sore throat Cardiovascular: Cardiovascular: Reports chest pain, Denies rapid heart rate and Denies radiating jaw, neck or arm pain Respiratory: Respiratory: Reports as per HPI, Reports chest congestion, Reports cough, Reports dyspnea and Reports wheezing Gastrointestinal: Gastrointestinal: Denies abdominal pain, Denies diarrhea, Denies nausea and Denies vomiting Genitourinary: Genitourinary: Denies hematuria, Denies dysuria and Denies urinary incontinence Musculoskeletal: Musculoskeletal: Reports back pain (chronic) Integumentary/Breasts: Skin/Breast: Denies pruritus, Denies erythema and Reports rash (chronic BLE) Neurologic: Denies vertigo, Denies dizziness and Denies syncope Psychiatric: Psychiatric: Denies anxiety and Denies depression Hematologic/Lymphatic: Hematologic/Lymphatic: Denies easy bleeding and Denies easy bruising Allergic/Immunologic: Allergic/Immunologic: Denies lip swelling, Denies tongue swelling and Reports wheezing PMFSH Past Medical History Medical History (Updated 03/26/19 @ 03:45 by George Goodwin MD) Back pain CHF (congestive heart failure) Chronic cellulitis COPD (chronic obstructive pulmonary disease) HTN (hypertension) Type 2 diabetes mellitus Surgical History Surgical History H/O left knee surgery H/O right knee surgery History of cholecystectomy History of partial hysterectomy Social History Social History Smoking status: Former smoker Alcohol intake: never Substance use: never Living arrangements: with family Occupation/Education: retired Exam Const: General: alert Nutritional Appearance: obese Orientation/consciousness: oriented x3 Other: mild/mod acute distress HENMT: Ears: external ears normal Mouth: Yes oral mucosae normal and Yes dry mucous membranes Throat: posterior oropharynx normal Eyes: Conjunctivae: conjunctivae normal Pupils: PERRL EOM: EOM intact bilaterally Resp: Effort & Inspection: no retractions, tachypneic and no use of accessory muscles Auscultation: no crackles, no rales, no rhonchi, wheezes expiratory whee
[2019-03-26 02:36] LABS: Basophils Absolute Auto 0.04 K/mm3 (0.00-0.10); Basophils Percent Auto 0.5 % (0.0-1.0); Eosinophils Absolute Auto 0.24 K/mm3 (0.02-0.50); Eosinophils Percent Auto 2.7 % (1.0-6.0); Hematocrit 36.8 % (35.0-42.0); Hemoglobin 11.1 g/dL (11.7-13.8); Immature Granulocyte Absolute 0.05 K/mm3 (0.00-0.00); Immature Granulocyte Percent A 0.6 % (0.0-0.0); Lymphocytes Absolute Auto 1.26 K/mm3 (1.10-4.50); Lymphocytes Percent Auto 14.4 % (18.0-42.0); Mean Corpuscular HGB Conc 30.2 g/dL (32.0-36.0); Mean Corpuscular Hemoglobin 23.8 pg (27.0-31.0); Mean Corpuscular Volume 78.8 fL (78.0-102.0); Monocytes Absolute Auto 0.47 K/mm3 (0.10-0.90); Monocytes Percent Auto 5.4 % (2.0-11.0); Neutrophils Absolute Auto 6.7 K/mm3 (1.7-7.2); Neutrophils Percent Auto 76.4 % (50.0-70.0); Platelet Count Result 230 K/mm3 (150-420); Red Blood Count 4.67 M/mm3 (4.20-5.40); Red Cell Distribution Width 15.9 % (11.6-14.4); White Blood Count 8.7 K/mm3 (4.8-10.8)
[2019-03-26 02:47] LABS: Partial Thromboplastin Time 29.2 SEC (22.3-31.6)
[2019-03-26 02:55] LABS: BNP 340 pg/mL (0-100)
[2019-03-26 03:06] LABS: Appearance Urine Sl Cloudy (Clear); Bilirubin Urine Negative (Negative); Blood Urine Negative (Negative); Color Urine Yellow (Yellow); Glucose Urine UA Negative (Negative); Ketones Urine Negative (Negative); Leukocyte Esterase Ur Negative LEU/UL (Negative); Nitrate Urine Positive (Negative); Protein Urine Negative (Negative)
[2019-03-26] MEDS: IPRATROPIUM 0.5 MG/ALBUTEROL SULFATE 2.5 MG AMPUL.NEB 3 ML INHALATION ×4 (03:10→18:21)
[2019-03-26] MEDS: ASPIRIN 81 MG CHEWABLE TABLET 324 MG PO (03:11)
[2019-03-26] MEDS: methylPREDNISolone SOD SUCC 125 MG VIAL IV PUSH (03:11)
[2019-03-26] MEDS: ALBUTEROL SULFATE NEB 2.5 MG/3 ML INH INHALATION (03:11)
[2019-03-26 03:12] LABS: Add Urine Microscopic? YES; Amorphous Sediment Urine Moderate; Bacteria Urine 1+ /hpf; RBC Urine 0-2 /hpf (0-2); WBC Urine 0-3 /hpf (0-3)
[2019-03-26 03:17] LABS: Albumin Level 3.2 g/dL (3.4-5.0); Alkaline Phosphatase 120 U/L (46-116); Bilirubin,Total 0.6 mg/dL (0.00-1.00); Blood Urea Nitrogen 13 mg/dL (7-18); Calcium 9.7 mg/dL (8.5-10.1); Carbon Dioxide 35 mmol/L (21-32); Estimated CRCL calculation 67 ml/min; Estimated Glomerular Filt Rate > 60; Glucose 98 mg/dL (70-99)
[2019-03-26 03:18] LABS: Alanine Aminotransferase 14 U/L (14-59); Anion Gap 13.3 mmol/L (7-16); Aspartate Amino Transferase 14 U/L (15-37); Chloride 102 mmol/L (98-108); Osmolality Calculated 304 mOsm/kg (285-295); Potassium 3.3 mmol/L (3.5-5.1); Sodium 147 mmol/L (136-145); Total Protein 7.7 g/dL (6.4-8.2)
[2019-03-26 03:19] LABS: Troponin I < 0.02 ng/mL (0.00-0.056)
[2019-03-26 03:19] LABS: CRP 4.5 mg/dL (0.0-0.9)
[2019-03-26 03:20] LABS: Influenza Control Valid (Valid)
[2019-03-26 03:21] LABS: Lactic Acid Reflex 2.3 mmol/L (0.4-2.0)
[2019-03-26] MEDS: SODIUM CHLORIDE 0.9% IV 500 ML 999 ML IV CONT (03:34)
--- NOTE | 2019-03-26 03:41 | PC.NURSE ---
PER DR MORENO, ALL ORDERS FOR ADMISSION COMPLETED
--- NOTE | 2019-03-26 03:50 | PC.NURSE ---
CALLED TO GET ROOM ASSIGNMENT [id number], PER ALDA , CHARGE NURSE, ELIE WILL HAVE PATIENT. AWAITING TO GIVE REPORT.
--- NOTE | 2019-03-26 04:18 | ADMGEN ---
This patient, Angela Ewing, was admitted to 2nd Floor Room 208-2. Patient/family oriented to hospital policies and general routines including ID bracelet, bed and alarms, visiting hours, pain management, procedures, bathroom and other care routines, personal items, smoking policy, room service/diet, and visiting hours. Valuables list has been completed. Information on how to activate the Rapid Response Team has been discussed. Patient/Family are encouraged to report perceived risks to care and to ask questions if they do not understand what they are told or what they should do.
[2019-03-26 05:31] LABS: Reflex Lactic Acid Yes or No Add Lactic
[2019-03-26 05:48] LABS: Troponin I < 0.02 ng/mL (0.00-0.056)
[2019-03-26 06:00] LABS: Lactic Acid 3.2 mmol/L (0.4-2.0)
[2019-03-26 08:36] LABS: Troponin I < 0.02 ng/mL (0.00-0.056)
[2019-03-26] MEDS: AMLODIPINE BESYLATE 5 MG TABLET 10 MG PO (09:04)
[2019-03-26] MEDS: atenoloL 50 MG TABLET PO (09:05)
[2019-03-26] MEDS: APIXABAN 2.5 MG TABLET 5 MG PO ×2 (09:05→17:17)
[2019-03-26] MEDS: metFORMIN HCL 500 MG TABLET PO ×2 (09:05→17:17)
[2019-03-26 11:09] LABS: Basophils Absolute Auto 0.02 K/mm3 (0.00-0.10); Basophils Percent Auto 0.2 % (0.0-1.0); Eosinophils Absolute Auto 0.01 K/mm3 (0.02-0.50); Eosinophils Percent Auto 0.1 % (1.0-6.0); Hematocrit 34.9 % (35.0-42.0); Hemoglobin 10.7 g/dL (11.7-13.8); Immature Granulocyte Absolute 0.09 K/mm3 (0.00-0.00); Immature Granulocyte Percent A 0.7 % (0.0-0.0); Lymphocytes Absolute Auto 0.28 K/mm3 (1.10-4.50); Lymphocytes Percent Auto 2.2 % (18.0-42.0); Mean Corpuscular HGB Conc 30.7 g/dL (32.0-36.0); Mean Corpuscular Hemoglobin 24.3 pg (27.0-31.0); Mean Corpuscular Volume 79.3 fL (78.0-102.0); Mean Platelet Volume 10.1 fl (9.2-11.8); Monocytes Absolute Auto 0.05 K/mm3 (0.10-0.90); Monocytes Percent Auto 0.4 % (2.0-11.0); Neutrophils Percent Auto 96.4 % (50.0-70.0); Platelet Count Result 225 K/mm3 (150-420); Red Cell Distribution Width 15.7 % (11.6-14.4); White Blood Count 12.5 K/mm3 (4.8-10.8)
[2019-03-26 11:29] LABS: Lactic Acid Reflex 4.5 mmol/L (0.4-2.0)
[2019-03-26 11:31] LABS: BNP 333 pg/mL (0-100)
[2019-03-26 11:38] LABS: Alanine Aminotransferase 14 U/L (14-59); Alkaline Phosphatase 116 U/L (46-116); Anion Gap 12.6 mmol/L (7-16); Aspartate Amino Transferase 11 U/L (15-37); Bilirubin,Total 0.4 mg/dL (0.00-1.00); Blood Urea Nitrogen 19 mg/dL (7-18); Calcium 8.9 mg/dL (8.5-10.1); Carbon Dioxide 33 mmol/L (21-32); Chloride 100 mmol/L (98-108); Estimated CRCL calculation 52 ml/min; Estimated Glomerular Filt Rate 49; Glucose 277 mg/dL (70-99); Magnesium 1.9 mg/dL (1.8-2.4); Osmolality Calculated 306 mOsm/kg (285-295); Potassium 3.6 mmol/L (3.5-5.1); Sodium 142 mmol/L (136-145); Total Protein 7.5 g/dL (6.4-8.2)
--- NOTE | 2019-03-26 11:48 | PC.NURSE ---
Resting with HOB and FOB elevated, awakens to voice, alert and oriented, denies needs, just tired
[2019-03-26] MEDS: SODIUM CHLORIDE 0.9% IV 1,000 ML 999 ML IV CONT (12:47)
--- NOTE | 2019-03-26 13:08 | PC.NURSE ---
Fluids infusing as ordered due to elevated lactic acid level
--- NOTE | 2019-03-26 14:19 | PM.IMHP ---
H&P: HPI History of Present Illness Chief complaint: SOB Narrative: Angela Ewing is a 73 year old female with a history of chronic back pain, congestive heart failure, chronic cellulitis, COPD, hypertension, type 2 diabetes and atrial fibrillation. She presented to the ED via EMS complaining of shortness of breath, chest pains and an nonproductive cough started 1 day prior to admission. She noted that while she was at rehab she started feeling heaviness on her chest with shortness of breath and an uncontrollable cough. Currently her vital signs are 125/5636.1, 80, 18 in 96% on 4 L nasal cannula. patient does use oxygen at 2 L at home. While in the ER patient received Rocephin, 1 L of normal saline ,Solu-Medrol with breathing treatments. Troponins were negative x2 and EKG is insignificant Patient is being admitted for septicemia secondary to UTI as evidenced by elevated lactic acid , tachycardia, and tachypnea with slight hypotension, Positive for bacteria and nitrates in urinary and uncompensated congestive heart with a BNP of 340 , imaging indicating mild pulmonary edema. Patient will continue Rocephin daily, I will carefully hydrate her and monitor her BNP and get a cxr with daily weight due to her history of congestive heart failure. I will also order echo to get the present status of congestive heart failure, since she do not have one on file . I will restart her lasix when appropriate. she does continue to have shortness of breath with activity . Patient able to tolerate all meals . Patient denies CP, palpitation, extremity numbness, lightheadness, dizziness, constipation, diarrhea, or chills or fever. Review of Systems Constitutional: Constitutional: Denies body ache(s), Denies chills, Denies fatigue, Denies fever(s), Denies headache(s) and Denies poor appetite Cardiovascular: Cardiovascular: Denies chest pain and Reports edema ( Bilateral lower extremities 1+) Respiratory: Respiratory: Denies chest congestion, Denies cough and Reports dyspnea on exertion Gastrointestinal: Gastrointestinal: Reports no additional gastrointestinal complaints, Denies GI cramping, Denies diarrhea and Denies nausea Genitourinary: Genitourinary: Reports no additional female genitourinary complaints, Denies hematuria, Denies urinary frequency, Denies frequent urination, Denies dysuria, Denies flank pain, Denies urinary incontinence and Denies urinary hesitancy Musculoskeletal: Musculoskeletal: Reports muscle weakness Integumentary/Breasts: Skin/Breast: Reports swelling ( bilateral lower extremities) and Reports wounds ( scabbed over source bilateral lower extremity) [facility] Past Medical History Medical History (Updated 03/27/19 @ 12:03 by RODNEY Wang) Back pain CHF (congestive heart failure) Chronic cellulitis COPD (chronic obstructive pulmonary disease) HTN (hypertension) Type 2 diabetes mellitus Surgical History Surgical History H/O left knee surgery H/O right knee surgery History of cholecystectomy History of partial hysterectomy Social History Social History Smoking packs per day: 2 Smoking cigarettes per day: 40.0 Years smoked: 35 Smoking pack-years: 70.00 Smoking status: Heavy tobacco smoker Tobacco type: cigarettes Second hand tobacco smoke exposure: Yes Smoking end date: 03/31/08 Alcohol intake: never Substance use: never Substance use type: does not use Living arrangements: with family Occupation/Education: retired Gender identity (if verbalized by the patient): Female Spiritual care concerns: No Agree to blood products: Yes Meds Home Medications and Allergies Home Medications Medication Instructions Recorded Confirmed Type amlodipine 10 mg PO DAILY 03/26/19 03/26/19 History apixaban [Eliquis] 5 mg PO BID 03/26/19 03/26/19 History atenolol 50 mg PO DAILY
--- NOTE | 2019-03-26 14:54 | PC.NURSE ---
Patient requesting cream for under breasts and for dry legs
[2019-03-26 16:47] LABS: Glucose Point of Care 210 (65-105)
[2019-03-26 20:09] LABS: White Blood Count 10.6 K/mm3 (4.8-10.8)
[2019-03-26 20:29] LABS: Lactic Acid Reflex 2.4 mmol/L (0.4-2.0)
[2019-03-26 20:36] LABS: Alanine Aminotransferase 12 U/L (14-59); Albumin Level 2.8 g/dL (3.4-5.0); Alkaline Phosphatase 108 U/L (46-116); Anion Gap 9.5 mmol/L (7-16); Aspartate Amino Transferase 10 U/L (15-37); Bilirubin,Total 0.3 mg/dL (0.00-1.00); Blood Urea Nitrogen 22 mg/dL (7-18); CRP 3.3 mg/dL (0.0-0.9); Calcium 8.8 mg/dL (8.5-10.1); Carbon Dioxide 35 mmol/L (21-32); Chloride 102 mmol/L (98-108); Estimated CRCL calculation 58 ml/min; Estimated Glomerular Filt Rate 57; Glucose 213 mg/dL (70-99); Osmolality Calculated 305 mOsm/kg (285-295); Potassium 3.5 mmol/L (3.5-5.1); Sodium 143 mmol/L (136-145); Total Protein 6.9 g/dL (6.4-8.2)
[2019-03-26 20:38] LABS: BNP 495 pg/mL (0-100)
[2019-03-26] MEDS: MELATONIN 5 MG TABLET PO (20:40)
[2019-03-26 20:44] LABS: Glucose Point of Care 219 (65-105)
--- NOTE | 2019-03-26 21:41 | PC.NURSE ---
Dr Hoff returned call, lab results reviewed, no new orders at this time
--- NOTE | 2019-03-26 21:49 | PC.NURSE ---
pt sitting up in bed watching tv, denies any complaints or needs at this time
[2019-03-26 23:07] LABS: Reflex Lactic Acid Yes or No Add Lactic
--- NOTE | 2019-03-26 23:20 | PC.NURSE ---
Lying in bed with head of bed up [address], skin pink, respirations easy/unlabored
[2019-03-26 23:41] LABS: Lactic Acid 1.8 mmol/L (0.4-2.0)
[2019-03-27] VITALS (13 sets, daily range): BP systolic 104–120; BP diastolic 54–73; PULSE 61–74; RESP 12–18; TEMP 35.7–36.3; O2SAT 96–100
[2019-03-27] MEDS: IPRATROPIUM 0.5 MG/ALBUTEROL SULFATE 2.5 MG AMPUL.NEB 3 ML INHALATION ×4 (00:16→18:40)
[2019-03-27 05:31] LABS: Hematocrit 32.6 % (35.0-42.0); Hemoglobin 9.9 g/dL (11.7-13.8); Mean Corpuscular HGB Conc 30.4 g/dL (32.0-36.0); Mean Corpuscular Hemoglobin 24.1 pg (27.0-31.0); Mean Corpuscular Volume 79.3 fL (78.0-102.0); Mean Platelet Volume 10.7 fl (9.2-11.8); Platelet Count Result 228 K/mm3 (150-420); Red Blood Count 4.11 M/mm3 (4.20-5.40); Red Cell Distribution Width 15.7 % (11.6-14.4); White Blood Count 11.3 K/mm3 (4.8-10.8)
[2019-03-27] MEDS: LEVOTHYROXINE SODIUM 100 MCG TABLET 200 MCG PO (05:36)
[2019-03-27 05:49] LABS: Alanine Aminotransferase 11 U/L (14-59); Albumin Level 2.9 g/dL (3.4-5.0); Alkaline Phosphatase 97 U/L (46-116); Anion Gap 10.4 mmol/L (7-16); Aspartate Amino Transferase 9 U/L (15-37); Bilirubin,Total 0.3 mg/dL (0.00-1.00); Blood Urea Nitrogen 19 mg/dL (7-18); Calcium 9.1 mg/dL (8.5-10.1); Carbon Dioxide 34 mmol/L (21-32); Chloride 103 mmol/L (98-108); Estimated CRCL calculation 75 ml/min; Estimated Glomerular Filt Rate > 60; Glucose 115 mg/dL (70-99); Osmolality Calculated 301 mOsm/kg (285-295); Potassium 3.4 mmol/L (3.5-5.1); Sodium 144 mmol/L (136-145); Total Protein 6.8 g/dL (6.4-8.2)
[2019-03-27 05:51] LABS: BNP 369 pg/mL (0-100)
--- NOTE | 2019-03-27 06:17 | PC.NURSE ---
Call placed to Dr Hoff, lab results given, no new orders at this time.
[2019-03-27 08:03] LABS: Glucose Point of Care 147 (65-105)
[2019-03-27] MEDS: metFORMIN HCL 500 MG TABLET PO ×2 (08:44→16:50)
[2019-03-27] MEDS: APIXABAN 2.5 MG TABLET 5 MG PO ×2 (08:44→16:50)
[2019-03-27] MEDS: atenoloL 50 MG TABLET PO (08:44)
[2019-03-27] MEDS: AMLODIPINE BESYLATE 5 MG TABLET 10 MG PO (08:44)
[2019-03-27] MEDS: GABAPENTIN 300 MG CAPSULE PO ×3 (08:45→16:50)
[2019-03-27] MEDS: NEOMYCIN/POLYMYXIN/BACITRACIN OINTMENT 15 GM TUBE 1 APPLIC TOPICAL (09:34)
[2019-03-27] MEDS: POTASSIUM CHLORIDE 20 MEQ TABLET PO (10:01)
[2019-03-27 10:26] LABS: Troponin I < 0.02 ng/mL (0.00-0.056)
[2019-03-27] MEDS: POTASSIUM CHLORIDE 20 MEQ TABLET (11:19)
[2019-03-27 11:24] LABS: Glucose Point of Care 124 (65-105)
--- NOTE | 2019-03-27 12:07 | PM.IMPN ---
Progress Note: A&P Assessment and Plan (1) Dyspnea: Qualifiers: Dyspnea type: acute respiratory distress Qualified Code(s): R06.03 - Acute respiratory distress Code(s): R06.00 - Dyspnea, unspecified Status: Acute Assessment and Plan: - initial imaging indicated male pulmonary edema -secondary to uncompensated congestive heart failure - continue inhalers and nebulizers. - continue use of oxygen- - Lasix started on lower dose - repeat chest x-ray indicate mild congestion changes (2) Chest pain: Qualifiers: Chest pain type: unspecified Qualified Code(s): R07.9 - Chest pain, unspecified Code(s): R07.9 - Chest pain, unspecified Status: Acute Assessment and Plan: -not cardiac related - troponins negative EKG negative for [place], BP also negative - secondary to the uncompensated congestive heart failure. - will treat continue congestive heart failure. (3) Type 2 diabetes mellitus: Code(s): E11.9 - Type 2 diabetes mellitus without complications Status: Acute Assessment and Plan: -controlled - continue sliding scale - continue Accu-Cheks per order - will adjust as needed (4) COPD (chronic obstructive pulmonary disease): Qualifiers: COPD type: COPD with acute exacerbation Qualified Code(s): J44.1 - Chronic obstructive pulmonary disease with (acute) exacerbation Code(s): J44.9 - Chronic obstructive pulmonary disease, unspecified Status: Acute Assessment and Plan: - stable -continue nebulizers and inhalers. - continue use of oxygen (5) HTN (hypertension): Code(s): I10 - Essential (primary) hypertension Status: Acute Assessment and Plan: - blood pressure within normal limits - will continue home medication and adjust as needed. - continue to closely monitor vital signs is order. (6) CHF (congestive heart failure): Code(s): I50.9 - Heart failure, unspecified Status: Acute Assessment and Plan: - initialimaging indicated pulmonary edema. - continue use of Lasix - BnP improving - will order repeat chest x-ray in the a.m.. (7) UTI (urinary tract infection): Code(s): N39.0 - Urinary tract infection, site not specified Status: Acute Assessment and Plan: - UA positive for nitrates and bacteria. - continue the use of Rocephin - UA culture pending. (8) Sepsis: Code(s): A41.9 - Sepsis, unspecified organism Status: Acute Assessment and Plan: resolved -as evidence by tachycardia, tachypnea, slight hypotension and elevated lactic acid - will continue Rocephin to treat the UTI. - lactic acid within normal limits - started Tylenol for fever. Subjective Date/time seen: 03/27/19 12:07 This patient has been admitted for uncompensated congestive heart failure and sepsis secondary to UTI infection. Today patient's repeat lactate acid is within normal limits, CRP and white count has decreased. Her vital signs are within normal limits. She does use home oxygen her oxygen level right now is 100% and she is currently on 4 LNC. During my assessment patient was sitting up in the bed on her tablet did not appear to be in any obvious distress .she does complain of chest tightness which is possibly due to some fluid overload. patient was given 1 L to treat sepsis. repeat chest x-ray indicates mild congestive changes. Patient home Lasix was placed on hold, I will restart them today at a lower dosage. repeat troponin negative. patient continues to have slight shortness of breath on exertion with improve.ment. patient condition has improved. Review of Systems Constitutional: Constitutional: Denies fatigue and Denies fever(s) Cardiovascular: Cardiovascular: Reports other ( chest tightness possibly secondary to fluid overload) Respiratory: Respiratory: Reports dyspnea on exertion Gastrointestinal: Gastrointestinal: Reports no addit
[2019-03-27] MEDS: FUROSEMIDE INJ 40 MG/4 ML VIAL IV PUSH (12:20)
[2019-03-27 16:54] LABS: Glucose Point of Care 131 (65-105)
[2019-03-27] MEDS: FUROSEMIDE 20 MG TABLET (19:08)
[2019-03-27] MEDS: MELATONIN 5 MG TABLET PO (20:39)
[2019-03-27 22:01] LABS: Glucose Point of Care 115 (65-105)
[2019-03-28] VITALS (10 sets, daily range): BP systolic 96–108; BP diastolic 44–67; PULSE 60–76; RESP 12–16; TEMP 35.8–36.2; O2SAT 94–100
[2019-03-28] MEDS: IPRATROPIUM 0.5 MG/ALBUTEROL SULFATE 2.5 MG AMPUL.NEB 3 ML INHALATION ×4 (00:10→18:14)
[2019-03-28 05:48] LABS: Hematocrit 32.5 % (35.0-42.0); Hemoglobin 9.5 g/dL (11.7-13.8); Mean Corpuscular HGB Conc 29.2 g/dL (32.0-36.0); Mean Corpuscular Hemoglobin 23.6 pg (27.0-31.0); Mean Corpuscular Volume 80.6 fL (78.0-102.0); Mean Platelet Volume 10.5 fl (9.2-11.8); Platelet Count Result 206 K/mm3 (150-420); Red Blood Count 4.03 M/mm3 (4.20-5.40); Red Cell Distribution Width 15.8 % (11.6-14.4); White Blood Count 8.6 K/mm3 (4.8-10.8)
[2019-03-28] MEDS: LEVOTHYROXINE SODIUM 100 MCG TABLET 200 MCG PO (05:53)
[2019-03-28 05:59] LABS: Anion Gap 6.5 mmol/L (7-16); Blood Urea Nitrogen 20 mg/dL (7-18); Calcium 8.7 mg/dL (8.5-10.1); Carbon Dioxide 37 mmol/L (21-32); Chloride 105 mmol/L (98-108); Estimated CRCL calculation 72 ml/min; Estimated Glomerular Filt Rate > 60; Glucose 98 mg/dL (70-99); Osmolality Calculated 302 mOsm/kg (285-295); Potassium 3.5 mmol/L (3.5-5.1); Sodium 145 mmol/L (136-145)
[2019-03-28 06:06] LABS: Lactic Acid 1.4 mmol/L (0.4-2.0)
[2019-03-28 06:11] LABS: BNP 262 pg/mL (0-100)
[2019-03-28 07:11] LABS: Glucose Point of Care 101 (65-105)
--- NOTE | 2019-03-28 07:25 | PC.NURSE ---
Decreased oxygen from 4 liters to 2 liters
[2019-03-28] MEDS: APIXABAN 2.5 MG TABLET 5 MG PO ×2 (08:39→16:13)
[2019-03-28] MEDS: metFORMIN HCL 500 MG TABLET PO ×2 (08:39→16:13)
[2019-03-28] MEDS: GABAPENTIN 300 MG CAPSULE PO ×3 (08:39→16:13)
[2019-03-28] MEDS: atenoloL 50 MG TABLET PO (08:48)
[2019-03-28] MEDS: NEOMYCIN/POLYMYXIN/BACITRACIN OINTMENT 15 GM TUBE 1 APPLIC TOPICAL (08:49)
[2019-03-28] MEDS: FUROSEMIDE 40 MG TABLET PO ×2 (10:22→16:13)
[2019-03-28 11:43] LABS: Glucose Point of Care 117 (65-105)
[2019-03-28] MEDS: FUROSEMIDE 40 MG TABLET (11:43)
--- NOTE | 2019-03-28 13:48 | PM.IMPN ---
Progress Note: A&P Assessment and Plan (1) Dyspnea: Qualifiers: Dyspnea type: acute respiratory distress Qualified Code(s): R06.03 - Acute respiratory distress <Suzan PedrazaRODNEY Dunbar - Last Filed: 03/28/19 13:55> Code(s): R06.00 - Dyspnea, unspecified <Suzan MelgarYOANC - Last Filed: 03/28/19 13:55> Status: Acute <Suzan Vines RODNEY Melgar - Last Filed: 03/28/19 13:55> Assessment and Plan: - initial imaging indicated male pulmonary edema -secondary to uncompensated congestive heart failure - continue inhalers and nebulizers. - continue use of oxygen- - Lasix increased to 40 mg b.i.d. - repeat chest x-ray indicate mild congestion changes <Suzan KeilaRODNEY Dunbar - Last Filed: 03/28/19 13:55> (2) Chest pain: Qualifiers: Chest pain type: unspecified Qualified Code(s): R07.9 - Chest pain, unspecified <Suzan PedrazaYOAN DunbarC - Last Filed: 03/28/19 13:55> Code(s): R07.9 - Chest pain, unspecified <Suzan PedrazaRODNEY Dunbar - Last Filed: 03/28/19 13:55> Status: Acute <Suzan PedrazaJessica RamónRODNEY - Last Filed: 03/28/19 13:55> Assessment and Plan: -not cardiac related - troponins negative EKG negative for [place]. - secondary to the uncompensated congestive heart failure. - will treat congestive heart failure. <Docjustice KeilaRODNEY Dunbar - Last Filed: 03/28/19 13:55> (3) Type 2 diabetes mellitus: Code(s): E11.9 - Type 2 diabetes mellitus without complications <Suzan KeilaRODNEY Dunbar - Last Filed: 03/28/19 13:55> Status: Acute <Suzan KeilaRODNEY Dunbar - Last Filed: 03/28/19 13:55> Assessment and Plan: -controlled - continue sliding scale - continue Accu-Cheks per order - will adjust as needed <RODNEY Wang - Last Filed: 03/28/19 13:55> (4) COPD (chronic obstructive pulmonary disease): Qualifiers: COPD type: COPD with acute exacerbation Qualified Code(s): J44.1 - Chronic obstructive pulmonary disease with (acute) exacerbation <YOAN WangC - Last Filed: 03/28/19 13:55> Code(s): J44.9 - Chronic obstructive pulmonary disease, unspecified <YOAN WangC - Last Filed: 03/28/19 13:55> Status: Acute <Suzan KeilaRODNEY Dunbar - Last Filed: 03/28/19 13:55> Assessment and Plan: - stable -continue nebulizers and inhalers. - continue use of oxygen <RODNEY Wang - Last Filed: 03/28/19 13:55> (5) HTN (hypertension): Code(s): I10 - Essential (primary) hypertension <RODNEY Wang - Last Filed: 03/28/19 13:55> Status: Acute <RODNEY Wang - Last Filed: 03/28/19 13:55> Assessment and Plan: - blood pressure saw foot continue to monitor - will continue home medication and adjust as needed. - continue to closely monitor vital signs is order. <RODNEY Wang - Last Filed: 03/28/19 13:55> (6) CHF (congestive heart failure): Code(s): I50.9 - Heart failure, unspecified <RODNEY Wang - Last Filed: 03/28/19 13:55> Status: Acute <RODNEY Wang - Last Filed: 03/28/19 13:55> Assessment and Plan: - initialimaging indicated pulmonary edema. - increase Lasix to 40 mg b.i.d. will continue 120 mg on discharge - BnP improving - will order repeat chest x-ray before discharge <YOAN WangC - Last Filed: 03/28/19 13:55> (7) UTI (urinary tract infection): Code(s): N39.0 - Urinary tract infection, site not specified <RODNEY Wang - Last Filed: 03/28/19 13:55> Status: Acute <RODNEY Wang - Last Filed: 03/28/19 13:55> Assessment and Plan: - UA positive for nitrates and bacteria. with the growth of P. aeruginosa - continue the use of Rocephin - UA culture sensitivity pending <RODNEY Wang - Last Filed: 03/28/19 1
--- NOTE | 2019-03-28 16:04 | P.PNCROSS_ITS ---
Event Note Event Note: I reviewed the GROUP PROGRAM MANAGER or PA documentation, treatment plan, and medical decision making. Cor: RR and R, no g/m. JVD elevated at 30 degrees. BNP dropping. Agree with treatment plan.
--- NOTE | 2019-03-28 16:04 | PM.EVENT ---
Event Note Event Note: I reviewed the [employer] or PA documentation, treatment plan, and medical decision making. Cor: RR and R, no g/m. JVD elevated at 30 degrees. BNP dropping. Agree with treatment plan.
[2019-03-28 16:19] LABS: Glucose Point of Care 142 (65-105)
[2019-03-28 20:19] LABS: Glucose Point of Care 126 (65-105)
[2019-03-28] MEDS: MELATONIN 5 MG TABLET PO (20:47)
[2019-03-29] VITALS (9 sets, daily range): BP systolic 119–124; BP diastolic 55–69; PULSE 53–86; RESP 12–20; TEMP 27.9–36.3; O2SAT 93–96
[2019-03-29] MEDS: IPRATROPIUM 0.5 MG/ALBUTEROL SULFATE 2.5 MG AMPUL.NEB 3 ML INHALATION ×3 (00:08→13:00)
[2019-03-29 05:08] LABS: Hematocrit 33.4 % (35.0-42.0); Hemoglobin 10.1 g/dL (11.7-13.8); Mean Corpuscular HGB Conc 30.2 g/dL (32.0-36.0); Mean Corpuscular Hemoglobin 24.2 pg (27.0-31.0); Mean Corpuscular Volume 79.9 fL (78.0-102.0); Mean Platelet Volume 9.9 fl (9.2-11.8); Platelet Count Result 210 K/mm3 (150-420); Red Blood Count 4.18 M/mm3 (4.20-5.40); Red Cell Distribution Width 15.9 % (11.6-14.4); White Blood Count 9.9 K/mm3 (4.8-10.8)
[2019-03-29 05:25] LABS: Anion Gap 10.5 mmol/L (7-16); Blood Urea Nitrogen 19 mg/dL (7-18); Calcium 8.7 mg/dL (8.5-10.1); Carbon Dioxide 35 mmol/L (21-32); Chloride 103 mmol/L (98-108); Estimated CRCL calculation 67 ml/min; Estimated Glomerular Filt Rate > 60; Glucose 108 mg/dL (70-99); Osmolality Calculated 303 mOsm/kg (285-295); Potassium 3.5 mmol/L (3.5-5.1); Sodium 145 mmol/L (136-145)
[2019-03-29] MEDS: LEVOTHYROXINE SODIUM 100 MCG TABLET 200 MCG PO (05:54)
[2019-03-29 06:50] LABS: Glucose Point of Care 117 (65-105)
[2019-03-29] MEDS: FUROSEMIDE 40 MG TABLET PO ×2 (08:28→09:39)
[2019-03-29] MEDS: metFORMIN HCL 500 MG TABLET PO (08:28)
[2019-03-29] MEDS: POLYETHYLENE GLYCOL 3350 17 GM POWD.PACK PO (08:28)
[2019-03-29] MEDS: APIXABAN 2.5 MG TABLET 5 MG PO (08:29)
[2019-03-29] MEDS: atenoloL 50 MG TABLET PO (08:29)
[2019-03-29] MEDS: AMLODIPINE BESYLATE 5 MG TABLET 10 MG PO (08:29)
[2019-03-29] MEDS: GABAPENTIN 300 MG CAPSULE PO ×2 (08:30→13:11)
[2019-03-29] MEDS: NEOMYCIN/POLYMYXIN/BACITRACIN OINTMENT 15 GM TUBE 1 APPLIC TOPICAL (08:39)
[2019-03-29 11:41] LABS: Glucose Point of Care 132 (65-105)
--- NOTE | 2019-03-29 12:08 | PM.DS ---
DS: Diagnosis Admitting Diagnosis Admitting Diagnosis: Acute respiratory distress Discharge Diagnosis (1) Dyspnea: Qualifiers: Dyspnea type: acute respiratory distress Qualified Code(s): R06.03 - Acute respiratory distress Code(s): R06.00 - Dyspnea, unspecified Status: Acute Assessment and Plan: improved and stable - initial imaging indicated male pulmonary edema discharge chest x-ray does not show that this condition is worsened -secondary to uncompensated congestive heart failure - continue inhalers and nebulizers. - continue use of oxygen- - Lasix at home dose - (2) Chest pain: Qualifiers: Chest pain type: unspecified Qualified Code(s): R07.9 - Chest pain, unspecified Code(s): R07.9 - Chest pain, unspecified Status: Acute Assessment and Plan: resolved -not cardiac related - troponins negative EKG negative for DC this hospital stay - secondary to the uncompensated congestive heart failure. -congestive heart failure treated (3) Type 2 diabetes mellitus: Code(s): E11.9 - Type 2 diabetes mellitus without complications Status: Acute Assessment and Plan: stable -controlled - continue sliding scale - continue Accu-Cheks per order - will adjust as needed (4) COPD (chronic obstructive pulmonary disease): Qualifiers: COPD type: COPD with acute exacerbation Qualified Code(s): J44.1 - Chronic obstructive pulmonary disease with (acute) exacerbation Code(s): J44.9 - Chronic obstructive pulmonary disease, unspecified Status: Acute Assessment and Plan: - stable -continue nebulizers and inhalers. - continue use of oxygen (5) HTN (hypertension): Code(s): I10 - Essential (primary) hypertension Status: Acute Assessment and Plan: - blood pressure saw foot continue to monitor - will continue home medication and adjust as needed. - continue to closely monitor vital signs is order. (6) CHF (congestive heart failure): Code(s): I50.9 - Heart failure, unspecified Status: Acute Assessment and Plan: - initialimaging indicated pulmonary edema. discharge chest x-ray does not show that her condition has worsened - will continue 120 mg on discharge - BnP improving (7) UTI (urinary tract infection): Code(s): N39.0 - Urinary tract infection, site not specified Status: Acute Assessment and Plan: - UA positive for nitrates and bacteria. with the growth of P. aeruginosa - discharged on Omnicef - UA culture sensitivity pending (8) Sepsis: Code(s): A41.9 - Sepsis, unspecified organism Status: Acute Assessment and Plan: resolved -as evidence by tachycardia, tachypnea, slight hypotension and elevated lactic acid - discharged on Omnicef - lactic acid within normal limits - started Tylenol for fever. DS: Summary Hospital Course Reason for hospitalization: Sepsis secondary to UTI, congestive heart failure Hospital Course: Angela Ewing is a 73 year old female with a history of chronic back pain, congestive heart failure, chronic cellulitis, COPD, hypertension, type 2 diabetes and atrial fibrillation. She presented to the ED via EMS complaining of shortness of breath, chest pains and an nonproductive cough started 1 day prior to admission. She noted that while she was at rehab she started feeling heaviness on her chest with shortness of breath and an uncontrollable cough.While in the ER patient received Rocephin, 1 L of normal saline ,Solu-Medrol with breathing treatments. Troponins were negative x2 and EKG is insignificant Patient is being admitted for septicemia secondary to UTI as evidenced by elevated lactic acid , tachycardia, and tachypnea with slight hypotension, Positive for bacteria and nitrates in urinary and uncompensated congestive heart with a BNP of 340 , imaging indicating mild pulmonary edema. Discharge
--- NOTE | 2019-03-29 14:30 | ECHO_ITS ---
Patient Info Name: Angela Ewing Age: 73 years : 1945 Gender: Female Ht: 64 in Wt: 272 lbs BSA: 2.44 m2 HR: 60 bpm BP: 119 / 55 mmHg Heart Rhythm: Sinus Rhythm Technical Quality: Poor Exam Date: 03/29/2019 2:42 PM Exam Location: [facility], [place] Patient Status: Inpatient Admit Date: 03/26/2019 Staff Ordering Physician: Suzan MelgarP-Nicki Meat Wrapper: Boogie Pringle RDCS Attending Provider: George Goodwin MD Referring Physician: Ramón LUZ; Exam Type: CA echo doppler color flow Study Info Indications I50.40 - Unspecified combined systolic (congestive) and diastolic (congestive) heart failure Complete two-dimensional, color flow and Doppler transthoracic echocardiogram is performed. History/Risk Factors SOB and CHF; TAVR. Summary 1. Technically suboptimal study due to poor sonographic images. 2. Abnormal paradoxical septal motion consistent with bundle branch block. 3. Left ventricular chamber dimension is moderately enlarged. 4. Left ventricular systolic function is normal, estimated at 55-60%. 5. There is moderately increased left ventricular wall thickness. 6. The left ventricular diastolic function is indeterminate. 7. Tissue doppler is not performed. 8. Right ventricular chamber dimension is not well visualized. 9. Left atrial chamber dimension is severely enlarged. 10. Right atrial chamber dimension is not well visualized. 11. The aortic valve is not well visualized. 12. Cannot determine number of aortic valve leaflets. 13. Based on valve gradients there is mild aortic stenosis. 14. Moderate mitral annular calcification. 15. Moderately thickened and calcified mitral valve leaflets. 16. The tricuspid valve leaflets are not well visualized. 17. There is severe tricuspid valve regurgitation. 18. Mild pulmonary hypertension, estimated pulmonary arterial systolic pressure is 40 mmHg. 19. Dilated inferior vena cava with >50% collapse upon inspiration consistent with elevated right atrial pressure, 10 mmHg. Left Ventricle Technically suboptimal study due to poor sonographic images. Tissue doppler is not performed. Abnormal paradoxical septal motion consistent with bundle branch block. Left ventricular chamber dimension is moderately enlarged. Left ventricular systolic function is normal, estimated at 55-60%. There is moderately increased left ventricular wall thickness. The left ventricular diastolic function is indeterminate. Right Ventricle Right ventricular chamber dimension is not well visualized. Right ventricular systolic function is normal. Left Atria Left atrial chamber dimension is severely enlarged. Right Atria Right atrial chamber dimension is not well visualized. Aortic Valve Based on valve gradients there is mild aortic stenosis. Cannot determine number of aortic valve leaflets. The aortic valve is not well visualized. There is mild aortic valve stenosis. There is no aortic valve regurgitation. Pulmonic Valve There is no pulmonic regurgitation. Mitral Valve Moderate mitral annular calcification. Moderately thickened and calcified mitral valve leaflets. There is no mitral valve stenosis. There is no mitral valve regurgitation. Tricuspid Valve The tricuspid valve leaflets are not well visualized. There is severe tricuspid valve regurgitation. Mild pulmonary hypertension, estimated pulmonary arterial systolic pressure is 40 mmHg. Pericardium/Pleural There is no pericardial effusion. Inf
--- NOTE | 2019-04-06 13:31 | PC.NURSE ---
Discharge call back [phone] unable to reach patient.
== END 2019-03-29 15:53 | disposition home health service (06) ==
LOC: CHSED 03:45 → CHS2ND 03:53
PROVIDERS: Nurse Practitioner; Admitting Provider Emergency Medicine; Emergency Provider Emergency Medicine; PCP Family Medicine; Visit Provider Emergency Medicine
DX: A41.9 Sepsis, unspecified organism (principal); N39.0 Urinary tract infection, site not specified; I11.0 Hypertensive heart disease with heart failure; I50.9 Heart failure, unspecified; J44.1 Chronic obstructive pulmonary disease with (acute) exacerbation; I48.20 Chronic atrial fibrillation, unspecified; B96.5 Pseudomonas (aeruginosa) (mallei) (pseudomallei) as the cause of diseases classified elsewhere; E11.9 Type 2 diabetes mellitus without complications; M54.9 Dorsalgia, unspecified
CPT/HCPCS: 36415; 71045; 80048; 80053; 81001; 83605; 83735; 83880; 84484; 85025; 85027; 85048; 85610; 85730; 86140; 87040; 87077; 87086; 87088; 87186; 87804; 93005; 93306; 94640; 96361; 96365; 96366; 96375; 97163; 99284; 99285; A9270; G0378; J0696; J1815; J1940; J2930; J7030; J7040

== ENCOUNTER 2019-07-01 22:56 | Emergency (ER) | payer MEDICARE, SELFPAY ==
[2019-07-01 23:00] VITALS: BP 196/101; PULSE 102; RESP 12; O2SAT 89
[2019-07-01] MEDS: SODIUM CHLORIDE 0.9% IV 1,000 ML 999 ML IV CONT (23:05)
[2019-07-01] MEDS: MIDAZOLAM HCL 2 MG/2 ML VIAL IV PUSH (23:08)
[2019-07-01] MEDS: ETOMIDATE 20 MG/10 ML AMPUL 30 MG IV PUSH (23:09)
[2019-07-01] MEDS: SUCCINYLCHOLINE CHLORIDE 20 MG/ML 10 ML VIAL 100 MG IV PUSH (23:10)
[2019-07-01 23:20] VITALS: PULSE 42
--- NOTE | 2019-07-01 23:46 | ED.SOB ---
HPI - SOB/Dyspnea General Chief Complaint: Shortness of Breath/Dyspnea Stated Complaint: AMB Source: patient and EMS Mode of arrival: EMS History of Present Illness HPI Narrative: This is a 73-year-old female with a history of COPD, EMS was called to her home because patient was having difficulty breathing family started nebulizers and called EMS 20 minutes after they started nebulizer treatment, because the patient was gasping for air had labored breathing and EMS arrived started to bag the patient and was brought to the emergency department. The patient while at the emergency department continued to have difficulty with breathing and the patient started to have large brown emesis with chunks of food and trial of intubation was unsuccessful patient was bagged continuously and numerous attempts to intubate were unsuccessful as the patient had large amounts of brown emesis, the patient was suctioned and had continuous emesis with brown fluid with chunks of food and numerous attempts to intubate were unsuccessful. Patient has a history of COPD and CHF. the patient subsequently developed bradycardia and went into asystole and CPR was started and epinephrine was was given. See after 20 minutes CPR was stopped and pulse was checked and continued to be in asystole and code was called at approximately 11 20. Spoke to nelly edouard over the phone and told her about the situation, she was very tearful but understood that we did the best we could. MD elicited complaint: shortness of breath and cough Pertinent past history: COPD Onset (ago): hour(s) Context: choking/aspiration Timing: constant Severity: similar to previous episodes Exacerbating factors: nothing Relieving factors: nothing Known history of: COPD and congestive heart failure Treatment prior to arrival: oxygen and bronchodilator Related Data Home Medications Medication Instructions Recorded Confirmed ascorbic acid (vitamin C) 250 mg PO BID 01/30/19 01/30/19 levothyroxine 200 mcg PO DAILY 01/30/19 01/30/19 lidocaine 1 patch TOPICAL DAILY PRN 01/30/19 01/30/19 Eliquis 5 mg PO BID 03/26/19 03/26/19 amlodipine 10 mg PO DAILY 03/26/19 03/26/19 atenolol 50 mg PO DAILY 03/26/19 03/26/19 furosemide 40 mg PO HS 03/26/19 03/26/19 furosemide 80 mg PO DAILY 03/26/19 03/26/19 metformin 500 mg PO BID 03/26/19 03/26/19 Allergies Allergy/AdvReac Type Severity Reaction Status Date / Time morphine AdvReac Hallucinati Verified 06/07/19 16:29 ng sea food Allergy Intermediate Hives Uncoded 06/07/19 16:29 Review of Systems Review of Systems: All systems reviewed & are unremarkable except as noted in HPI and below PMFSH Past Medical History Medical History Anxiety Aortic valve stenosis Atrial fibrillation Atrial fibrillation Back pain Cardiac arrest CHF (congestive heart failure) Chronic back pain Chronic cellulitis Congestive heart failure COPD (chronic obstructive pulmonary disease) COPD (chronic obstructive pulmonary disease) CVA (cerebral vascular accident) Depression Depression HTN (hypertension) Hypertension Hypothyroidism Myocardial infarction Obesity Obstructive sleep apnea Obstructive sleep apnea Pulmonary hypertension Type 2 diabetes mellitus Type 2 diabetes mellitus Surgical History Surgical History H/O left knee surgery H/O prosthetic aortic valve replacement H/O right knee surgery History of appendectomy History of cholecystectomy History of partial hysterectomy History of partial hysterectomy History of tonsillectomy Hx of cholecystectomy S/P arthroscopic surgery of left knee S/P arthroscopic surgery of right knee Social History Social History Smoking packs per day: 2 Smoking cigarettes per day: 40.0 Years smoked: 45 Smoking pack-years: 90.00 Smoking status: Former smoker Tobac
--- NOTE | 2019-07-01 23:57 | PC.NURSE ---
2255 Pt. arrives to ED being bagged by EMS, pt. unresponsive to stimuli upon arrival. Pt. placed on monitor, showing Stach, bagging continues and pt. being prepped for intubation per ERP. 2304 IV sites obtained by staff #16 to RAC and #20 to LT wrist. 2308 RSI administered, see notes in chart. 2310 Bagging efforts continue and no chest rise noted during bagging, pt. repositioned, then lrg amt. emesis noted in airway and pt. continues to vomit lrg amt. of food particles and dark brown emesis noted, suctioning of pt. performed. Attempting intubation per ERP. 2315 Bagging continues, spo2 noted to decrease to 70%, pt. repositioned and airway opened 2321 Bradycardia noted on monitor, no pulses noted CPR started, see CODE sheet for further documentation.
== END 2019-07-01 23:36 | disposition expired ==
PROVIDERS: Emergency Provider Emergency Medicine; PCP Emergency Medicine
DX: I46.9 Cardiac arrest, cause unspecified (principal); J44.1 Chronic obstructive pulmonary disease with (acute) exacerbation; T17.908A Unspecified foreign body in respiratory tract, part unspecified causing other injury, initial encounter; I48.91 Unspecified atrial fibrillation; I11.0 Hypertensive heart disease with heart failure; I50.9 Heart failure, unspecified; E03.9 Hypothyroidism, unspecified; E11.9 Type 2 diabetes mellitus without complications; Z87.891 Personal history of nicotine dependence
CPT/HCPCS: 92950; 96361; 96374; 96375; 99284; 99285; J0330; J2250; J7030